=== PATIENT | female | born 1950 | race Hispanic/Latino ===

== ENCOUNTER 2017-03-05 19:43 | Inpatient (IN) | payer OTHER ==
[2017-03-05] MEDS ORDERED: cefTRIAXone (Rocephin) 1 gm Inj IVPB ONE (20:13)
--- NOTE | 2017-03-05 20:17 | ED PDOC ---
HPI: Female Pain Time Seen by Provider: 03/05/17 20:00 Chief Complaint (Nursing): Female Genitourinary Chief Complaint (Provider): back pain History Per: Patient (66 y/o h/o HTN with right sided flank pain associated fever/vomiting. Has had dysuria 1 week prior and self treated with OTC medications. Has been taking tylenol for pain and fever (last dose 2 hours prior). Seen at urgent care center and sent to ED for evaluation of pyelonephritis. No h/o abdominal surgeries. No h/o LA/CAD.) Past Medical History Reviewed: Historical Data, Nursing Documentation, Vital Signs Vital Signs: Last Vital Signs Temp 98.8 F 03/05/17 19:47 Pulse 73 03/05/17 19:47 Resp 14 03/05/17 19:47 BP 164/89 H 03/05/17 19:47 Pulse Ox 99 03/05/17 19:47 - Family History Family History: States: No Known Family Hx - Allergies Allergies/Adverse Reactions: Allergies Allergy/AdvReac Type Severity Reaction Status Date / Time No Known Allergies Allergy Verified 03/05/17 19:46 Review of Systems ROS Statement: Except As Marked, All Systems Reviewed And Found Negative Constitutional: Positive for: Fever Musculoskeletal: Positive for: Back Pain Physical Exam - Reviewed Nursing Documentation Reviewed: Yes Vital Signs Reviewed: Yes - Physical Exam Appears: Positive for: Well, Non-toxic, No Acute Distress Head Exam: Positive for: ATRAUMATIC, NORMAL INSPECTION, NORMOCEPHALIC Skin: Positive for: Normal Color, Warm, DRY Eye Exam: Positive for: EOMI, Normal appearance, PERRL ENT: Positive for: Normal ENT Inspection Neck: Positive for: Normal, Painless ROM Cardiovascular/Chest: Positive for: Regular Rate, Rhythm Respiratory: Positive for: CNT, Normal Breath Sounds Gastrointestinal/Abdominal: Positive for: Normal Exam, Bowel Sounds, Soft Back: Positive for: Normal Inspection, R CVA Tenderness Extremity: Positive for: Normal ROM Neurologic/Psych: Positive for: Alert, Oriented - Laboratory Results Urine dip results: Positive for: Leukocyte Esterase. Negative for: Blood, Nitrate, Ketones, Glucose, Bilirubin, Protein - ECG O2 Sat by Pulse Oximetry: 99 - Progress ED Course And Treament: Rocephin 1 gm iv x 1 dose NS 1 liter wide open Morphine 4 mg iv x 1 dose zofran 4 mg iv x 1 dose Disposition - Clinical Impression Clinical Impression: Pyelonephritis - Patient ED Disposition Is Patient to be Admitted: Transfer of Care - Disposition Disposition: Transfer of Care Disposition Time: 21:12 Condition: STABLE Forms: [facility] (Kosovan) Patient Signed Over To: Ivory Burris Handoff Comments: pending bloodwork/urine/re-eval
[2017-03-05] MEDS ORDERED: Sodium Chloride 0.9% 1,000 ML IV STA (20:19)
[2017-03-05 21:22] LABS: VENOUS BLOOD GAS BASE EXCESS 1.7 mmol/L (0.0-2.0); VENOUS BLOOD GAS PCO2 38 mmHg (40-60); VENOUS BLOOD PH 7.44 (7.32-7.43)
[2017-03-05 21:24] LABS: BASO % 0.2 % (0.0-2.0); EOS % 0.1 % (0.0-4.0); HEMATOCRIT 38.3 % (34.0-47.0); LYMPH # 0.6 K/uL (1.0-4.3); LYMPH % 6.5 % (20.0-40.0); MEAN CELL VOLUME 98.5 fl (81.0-99.0); MEAN CORPUSCULAR HEMOGLOBIN 32.7 pg (27.0-31.0); MEAN CORPUSCULAR HGB CONC 33.2 g/dL (33.0-37.0); MEAN PLATELET VOLUME 9.1 fl (7.2-11.7); MONO # 0.6 K/uL (0.0-0.8); MONO % 5.7 % (0.0-10.0); NEUT # 8.8 K/uL (1.8-7.0); NEUT % 87.5 % (50.0-75.0); PLATELET COUNT 187 K/uL (130-400); RED CELL DISTRIBUTION WIDTH 12.6 % (11.5-14.5)
[2017-03-05 21:30] LABS: ALB/GLOB RATIO 1.2 (1.0-2.1); BILIRUBIN,TOTAL 0.8 mg/dl (0.2-1.3); CALCIUM 8.6 mg/dL (8.4-10.2); POTASSIUM 3.4 MMOL/L (3.6-5.0); TOTAL PROTEIN 6.2 G/DL (6.3-8.2)
[2017-03-05 21:44] LABS: RBC URINE 17 /hpf (0-3); URINE BILIRUBIN NEGATIVE (NEGATIVE); URINE BLOOD MODERATE (NEGATIVE); URINE COLOR AMBER (YELLOW); URINE GLUCOSE (UA) NEG (Normal); URINE KETONE NEGATIVE (NEGATIVE); URINE LEUKOCYTE ESTERASE LARGE Leu/uL (Negative); URINE PROTEIN 100 mg/dL (NEGATIVE); URINE UROBILINOGEN 0.2-1.0 mg/dL (0.2-1.0); WBC CLUMPS FEW /hpf; WBC URINE 265 /hpf (0-5)
[2017-03-05 22:05] LABS: NEUTROPHIL 81 % (42-75); TOTAL CELLS COUNTED 100
--- NOTE | 2017-03-05 23:29 | CT ---
EXAM: CT Abdomen and Pelvis Without Intravenous Contrast CLINICAL HISTORY: 66 years old, female; Pain; Abdominal pain; Flank; Right; Additional info: Right flank pain, hematuria, uti TECHNIQUE: Axial computed tomography images of the abdomen and pelvis without intravenous contrast. All CT scans at this facility use one or more dose reduction techniques, viz.: automated exposure control; ma/kV adjustment per patient size (including targeted exams where dose is matched to indication; i.e. head); or iterative reconstruction technique. Coronal and sagittal reformatted images were created and reviewed. COMPARISON: No relevant prior studies available. FINDINGS: Lower thorax: There is a large hiatal hernia which contains a majority of the stomach. There is minimal bibasilar atelectasis. ABDOMEN: Liver: There are no focal liver lesions present. Gallbladder and bile ducts: The gallbladder is contracted but otherwise normal. No calcified stones. No ductal dilation. Pancreas: Pancreas is atrophic and somewhat fatty replaced. No ductal dilation. Spleen: The spleen is normal. Adrenals: Unremarkable. No mass. Kidneys and ureters: There is some fatty stranding and slight fluid seen in both perinephric regions, left greater than right, and also inferior to the pancreas body and tail. Stranding extends into both paracolic gutter regions. This is nonspecific but could possibly relate to pancreatitis or infectious process of the urinary tract. Please correlate clinically. No convincing evidence for obstructive uropathy. Stomach and bowel: There is no evidence of intestinal obstruction. No mucosal thickening. Appendix: No findings to suggest acute appendicitis. PELVIS: Bladder: Bladder is decompressed. No stones. Reproductive: The uterus is normal. ABDOMEN and PELVIS: Intraperitoneal space: There is no free intraperitoneal air. No significant fluid collection. Bones/joints: There are mild degenerative changes present. There is moderate diffuse osteopenia. There is mild grade 1 anterolisthesis of L4 on L5. No acute fracture. No dislocation. Soft tissues: Unremarkable. Vasculature: The aorta demonstrates mild atherosclerotic calcification. No abdominal aortic aneurysm. Lymph nodes: There is no evidence of lymphadenopathy. IMPRESSION: 1. There is a large hiatal hernia which contains a majority of the stomach. 2. There is some fatty stranding and slight fluid seen in both perinephric regions, left greater than right, and also inferior to the pancreas body and tail. Stranding extends into both paracolic gutter regions. This is nonspecific but could possibly relate to pancreatitis or infectious process of the urinary tract. Please correlate clinically. 3. Additional incidental and/or chronic findings as described.
--- NOTE | 2017-03-05 23:41 | ED PDOC ---
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 All CT scans at this facility use one or more dose reduction techniques, viz.: automated exposure control; ma/kV adjustment per patient size (including targeted exams where dose is matched to indication; i.e. head); or iterative reconstruction technique. Coronal and sagittal reformatted images were created and reviewed. COMPARISON: No relevant prior studies available. FINDINGS: Lower thorax: There is a large hiatal hernia which contains a majority of the stomach. There is minimal bibasilar atelectasis. ABDOMEN: Liver: There are no focal liver lesions present. Gallbladder and bile ducts: The gallbladder is contracted but otherwise normal. No calcified stones. No ductal dilation. Pancreas: Pancreas is atrophic and somewhat fatty replaced. No ductal dilation. Spleen: The spleen is normal. Adrenals: Unremarkable. No mass. Kidneys and ureters: There is some fatty stranding and slight fluid seen in both perinephric regions, left greater than right, and also inferior to the pancreas body and tail. Stranding extends into both paracolic gutter regions. This is nonspecific but could possibly relate to pancreatitis or infectious process of the urinary tract. Please correlate clinically. No convincing evidence for obstructive uropathy. Stomach and bowel: There is no evidence of intestinal obstruction. No mucosal thickening. Appendix: No findings to suggest acute appendicitis. PELVIS: Bladder: Bladder is decompressed. No stones. Reproductive: The uterus is normal ABDOMEN and PELVIS: Intraperitoneal space: There is no free intraperitoneal air. No significant fluid collection. Bones/joints: There are mild degenerative changes present. There is moderate diffuse osteopenia. There is mild grade 1 anterolisthesis of L4 on L5. No acute fracture. No dislocation. Soft tissues: Unremarkable. Vasculature: The aorta demonstrates mild atherosclerotic calcification. No abdominal aortic aneurysm. Lymph nodes: There is no evidence of lymphadenopathy. IMPRESSION: 1. There is a large hiatal hernia which contains a majority of the stomach. 2. There is some fatty stranding and slight fluid seen in both perinephric regions, left greater than right, and also inferior to the pancreas body and tail. Stranding extends into both paracolic gutter regions. This is nonspecific but could possibly relate to pancreatitis or infectious process of the urinary tract. Please correlate clinically. 3. Additional incidental and/or chronic findings as described. On re-eval, patient states she is still feeling weak. Case discussed with Dr. Calix, Hospitalist on-call, for admission for IV antibiotics, IV hydration Repeat vitals show tachycardia, hypotension. Will upgrade to telemetry. IV fluid bolus added. VBG with lactate added. Disposition - Clinical Impression Clinical Impression: Pyelonephritis, Sepsis - POA Present On Arrival: None - Disposition Disposition: Admitted as In-Patient Disposition Time: 01:03 Condition: FAIR
[2017-03-06] MEDS ORDERED: Sodium Chloride 0.9% 1,000 ML IV STA (01:34)
[2017-03-06 01:56] LABS: VENOUS BLOOD GAS BASE EXCESS -0.6 mmol/L (0.0-2.0); VENOUS BLOOD GAS PCO2 35 mmHg (40-60); VENOUS BLOOD PH 7.43 (7.32-7.43)
--- NOTE | 2017-03-06 02:13 | CP.PCM.HP ---
History of Present Illness - History of Present Illness History of Present Illness: PCP: Carrie Garcia complaint: Right back pain/vomiting/ weakness HPI: 66 years old female visiting from [place], has hx of asthma, HTN and was diagnosed 1 week ago with UTI. She was treated and initially felt better but 3 days prior to this admission she began presenting right flank pain radiating to the right groin and the right thigh. This was associated with Urinary frequency , headache, nausea, vomiting, mild diarrhea and generalized weakness. She referred no fever, coughing, chest pain. She was seen at the urgent care center and was sent to the ED for evaluation . Initial BP in ED was 164/89mmHg with a Heart rate of 73. this later changed to a heart rate of 120/min with fall in the blood pressure to 96/46mmHg. PMH: Asthma; HTN PSH: No surgical history SH: No illegal drugs; No smoking; No alcohol use; Live with Family in [place] Family Hx: Unknown family history Allergies: NKDA Present on Admission - Present on Admission Any Indicators Present on Admission: No History of DVT/PE: No History of Uncontrolled Diabetes: No Urinary Catheter: No Decubitus Ulcer Present: No Review of Systems - Constitutional Constitutional: Headache. absent: Anorexia, Chills, Fever - EENT Eyes: Requires Corrective Lenses. absent: Diplopia, Floaters, Sees Flashes Ears: absent: Decreased Hearing, Ear Discharge, Ear Pain, Tinnitus Nose/Mouth/Throat: absent: Epistaxis, Nasal Congestion, Sinus Pain, Sinus Pressure - Cardiovascular Cardiovascular: absent: Chest Pain, Dyspnea, Edema - Respiratory Respiratory: Cough. absent: Dyspnea, Wheezing, Stridor - Gastrointestinal Gastrointestinal: Diarrhea, Nausea, Vomiting. absent: Constipation - Genitourinary Genitourinary: Flank Pain, Urinary Incontinence, Urinary Frequency. absent: Hematuria - Musculoskeletal Musculoskeletal: Muscle Weakness. absent: Arthralgias, Myalgias - Integumentary Integumentary: absent: Pruritus, Rash, Skin Ulcer, Sores, Striae, Swelling - Neurological Neurological: Weakness. absent: Confusion, Dizziness, Focal Weakness - Psychiatric Psychiatric: absent: Anxiety, Depression, Panic Attacks - Endocrine Endocrine: absent: Palpitations, Polydipsia, Polyphagia, Polyuria - Hematologic/Lymphatic Hematologic: absent: Easy Bleeding, Easy Bruising Past Patient History - Past Social History Smoking Status: Never Smoked Chewing Tobacco Use: No Cigar Use: No Alcohol: None Home Situation {Lives}: With Family - CARDIAC Hx Cardiac Disorders: No - PULMONARY Hx Asthma: Yes - HEENT Hx HEENT Problems: No - RENAL Hx Chronic Kidney Disease: No - ENDOCRINE/METABOLIC Hx Endocrine Disorders: No - HEMATOLOGICAL/ONCOLOGICAL Hx Blood Disorders: No - INTEGUMENTARY Hx Dermatological Problems: No - MUSCULOSKELETAL/RHEUMATOLOGICAL Hx Musculoskeletal Disorders: No - GASTROINTESTINAL Hx Bowel Surgery: No - GENITOURINARY/GYNECOLOGICAL Hx Genitourinary Disorders: Yes Hx Urinary Tract Infection: Yes - PSYCHIATRIC Hx Psychophysiologic Disorder: Yes Hx Substance Use: No - SURGICAL HISTORY Hx Surgeries: No - ANESTHESIA Hx Anesthesia: No Meds Allergies/Adverse Reactions: Allergies Allergy/AdvReac Type Severity Reaction Status Date / Time No Known Allergies Allergy Verified 03/05/17 19:46 Physical Exam - Constitutional Appears: No Acute Distress - Head Exam Head Exam: ATRAUMATIC, NORMAL INSPECTION, NORMOCEPHALIC - Eye Exam Eye Exam: EOMI, Normal appearance Pupil Exam: NORMAL ACCOMODATION, PERRL - ENT Exam ENT Exam: Mucous Membranes Dry, Normal Exam, Normal External Ear Exam, Normal Oropharynx - Neck Exam Neck exam: Positive for: Full Rom, Normal Inspection. Negative for: Lymphadenopathy, Tenderness - Respiratory Exam Respiratory Exam: NORMAL BREATHING PATTERN. absent: Rales, Rhonchi, Wheezes - Cardiovascular Exam Cardiovascular Exam: Clicks, REGULAR RHYTHM, RRR, +S1, +S2 - GI/Abdominal Exam Additional comments: Pain to the right lower quadrant.No guarding, nor rebound tenderness. - Rectal Exam Rectal Exam: Deferred - Extremities Exam Extremities exam: Positive for: full ROM, joint swelling, normal inspection. Negative for: calf tenderness - Back Exam Back exam: CVA tenderness (R), NORMAL INSPECTION. absent: CVA tenderness (L) - Neurological Exam Neurological exam: Alert, CN II-XII Intact, Oriented x3, Reflexes Normal - Psychiatric Exam Psychiatric exam: Normal Affect, Normal Mood - Skin Skin Exam: Dry, Intact, Pallor, Warm Results - Vital Signs Recent Vital Signs: Last Vital Signs Temp 98.7 F 03/06/17 01:19 Pulse 120 H 03/06/17 01:19 Resp 14 03/05/17 19:47 BP 95/46 L 03/06/17 01:19 Pulse Ox 99 03/06/17 01:43 - Labs Result Diagrams: 03/05/17 21:09 03/05/17 21:09 Labs: Laboratory Results - last 24 hr 03/06/17 01:53 pO2 41 VBG pH 7.43 VBG pCO2 35 L VBG HCO3 23.9 VBG Total CO2 24.3 VBG O2 Sat (Calc) 83.5 H VBG Base Excess -0.6 L VBG Potassium 3.0 L Sodium 129.0 L Chloride 97.0 L Glucose 118 H Lactate 1.0 FiO2 21.0 Venous Blood Potassium 3.0 L - EKG Data EKG comments: Sinus Tachycardia No sign of ischmia - Imaging and Cardiology CT scan - abdomen Status: Report reviewed by me Additional comment: FINDINGS: Lower thorax: There is a large hiatal hernia which contains a majority of the stomach. There is minimal bibasilar atelectasis. ABDOMEN: Liver: There are no focal liver lesions present. Gallbladder and bile ducts: The gallbladder is contracted but otherwise normal. No calcified stones. No ductal dilation. Pancreas: Pancreas is atrophic and somewhat fatty replaced. No ductal dilation. Spleen: The spleen is normal. Adrenals: Unremarkable. No mass. Kidneys and ureters: There is some fatty stranding and slight fluid seen in both perinephric regions, left greater than right, and also inferior to the pancreas body and tail. Stranding extends into both paracolic gutter regions. This is nonspecific but could possibly relate to pancreatitis or infectious process of the urinary tract. Please correlate clinically. No convincing evidence for obstructive uropathy. Stomach and bowel: There is no evidence of intestinal obstruction. No mucosal thickening. Appendix: No findings to suggest acute appendicitis. PELVIS: Bladder: Bladder is decompressed. No stones. Reproductive: The uterus is normal ABDOMEN and PELVIS: Intraperitoneal space: There is no free intraperitoneal air. No significant fluid collection. Bones/joints: There are mild degenerative changes present. There is moderate diffuse osteopenia. There is mild grade 1 anterolisthesis of L4 on L5. No acute fracture. No dislocation. Soft tissues: Unremarkable. Vasculature: The aorta demonstrates mild atherosclerotic calcification. No abdominal aortic aneurysm. Lymph nodes: There is no evidence of lymphadenopathy. IMPRESSION: 1. There is a large hiatal hernia which contains a majority of the stomach. 2. There is some fatty stranding and slight fluid seen in both perinephric regions, left greater than right, and also inferior to the pancreas body and tail. Stranding extends into both paracolic gutter regions. This is nonspecific but could possibly relate to pancreatitis or infectious process of the urinary tract. Please correlate clinically. 3. Additional incidental and/or chronic findings as described. Chest x-ray Status: Image reviewed by me, Report reviewed by me Additional comment: Atelectasis at the right base. Assessment & Plan - Assessment and Plan (Free Text) Assessment: #. Pyelonephritis #. Acute Renal failure #. Hyponatremia #. Hypokalemia #. funguria #. HTN Plan: 66 years old female visiting from [place], has hx of asthma, HTN and was diagnosed and treated 1 week ago with UTI. 3 days prior to this admission she began presenting right flank pain radiating to the right groin and the right thigh. This was associated with Urinary frequency, headache, nausea, vomiting, mild diarrhea and generalized weakness. Initial BP in ED was 164/89mmHg with a Heart rate of 73. This later changed to a heart rate of 120/min with fall in the blood pressure to 96/46mmHg. #. Pyelonephritis - Consult ID Dr Crouch - follow blood and urine cultures - Rocephin 1gm IVPB daily - IV Fluid NS -Pain management with Tylenol/Toradol #. Acute Renal failure, pre-renal due to the vomiting and Diarrhea - IV Fluids 2 liters in ED and continue at 150mls/hr - Follow renal labs #. Hyponatremia and Hypokalemia because pof poor intake, vomiting and diarrhea - IV fluid NS with KCL at 150/min - Follow electrolytes #. Funguria - 200mg PO daily - ID on board #. HTN - Hold antihypertensive Medications - follow Blood Pressures #. Diarrhea - Follow Stool for C Diff Toxins, and Culture and sensitivity. #. DVT prophylaxis with Lovenox #. Code Status: Full - Date & Time Date: 03/06/17 Time: 02:12
[2017-03-06] MEDS ORDERED: Potassium Chloride 20 mEq ER Tab PO ONE (02:30)
[2017-03-06] MEDS ORDERED: Sodium Chloride 0.9% 1,000 ML IV SCH (02:30)
[2017-03-06 08:03] LABS: BASO % 0.2 % (0.0-2.0); EOS % 0.1 % (0.0-4.0); HEMATOCRIT 33.8 % (34.0-47.0); LYMPH # 0.7 K/uL (1.0-4.3); LYMPH % 7.8 % (20.0-40.0); MEAN CELL VOLUME 98.7 fl (81.0-99.0); MEAN CORPUSCULAR HEMOGLOBIN 33.3 pg (27.0-31.0); MEAN CORPUSCULAR HGB CONC 33.7 g/dL (33.0-37.0); MEAN PLATELET VOLUME 9.4 fl (7.2-11.7); MONO # 0.5 K/uL (0.0-0.8); MONO % 6.1 % (0.0-10.0); NEUT # 7.3 K/uL (1.8-7.0); NEUT % 85.8 % (50.0-75.0); RED CELL DISTRIBUTION WIDTH 12.9 % (11.5-14.5); WHITE BLOOD COUNT 8.5 K/uL (4.8-10.8)
[2017-03-06 08:11] LABS: CALCIUM 7.4 mg/dL (8.4-10.2); POTASSIUM 3.4 MMOL/L (3.6-5.0)
[2017-03-06 08:35] LABS: PARTIAL THROMBOPLASTIN TIME 41.3 Seconds (25.6-37.1)
--- NOTE | 2017-03-06 09:41 | CP.PCM.CON ---
History of Present Illness - History of Present Illness History of Present Illness: Infectious Disease Consult Note- asked to see this patient for UTI . HPI- Patient is a pleasant 66 year old female visiting from [place] with h/o HTN who as admitted with c/o right flank pain and dysurea. Pt. explains initially 3 days prior to admission she felt pain with urination and she went to local pharmacy and got cranberry tabs which helped her symptoms somewhat but then she developed right flank pain and went to urgent care center and she was sent to ED for further evaluation and treatment. Pt. states since admission her dysurea has resolved but she still has slight right flank pain but much less than before. she denies any h/o UTI in the past, denies any h/o renal stones. pt. denies any feve ror chills, denies any nausea. PMH: Asthma; HTN PSH: No surgical history SH: No illegal drugs; No smoking; No alcohol use; Live with Family in [place] Family Hx: Unknown family history Allergy- denies any allergy to any medications Review of Systems - Review of Systems Review of Systems: ROS- denies any fever or chills, denies any BUITRAGO, denies any cough, denies any sob, denies any chest pain, denies any abd. pain but does have right flank and lower back pain , + dysurea but has mostly resolved, denies any diarrhea denies any sick contacts is here visiting her family from [place]. Past Patient History - Past Medical History & Family History Past Medical History?: Yes - Past Social History Smoking Status: Never Smoked Chewing Tobacco Use: No Cigar Use: No Alcohol: None Home Situation {Lives}: With Family - CARDIAC Hx Cardiac Disorders: No Hx Hypertension: Yes - HEENT Hx HEENT Problems: No - RENAL Hx Chronic Kidney Disease: No - ENDOCRINE/METABOLIC Hx Endocrine Disorders: No - HEMATOLOGICAL/ONCOLOGICAL Hx Blood Disorders: No - INTEGUMENTARY Hx Dermatological Problems: No - MUSCULOSKELETAL/RHEUMATOLOGICAL Hx Musculoskeletal Disorders: No - GASTROINTESTINAL Hx Bowel Surgery: No - GENITOURINARY/GYNECOLOGICAL Hx Genitourinary Disorders: Yes Hx Urinary Tract Infection: Yes - PSYCHIATRIC Hx Psychophysiologic Disorder: Yes Hx Substance Use: No - SURGICAL HISTORY Hx Surgeries: No - ANESTHESIA Hx Anesthesia: No Meds Allergies/Adverse Reactions: Allergies Allergy/AdvReac Type Severity Reaction Status Date / Time No Known Allergies Allergy Verified 03/05/17 19:46 - Medications Medications: Current Medications Acetaminophen (Tylenol 325mg Tab) 650 mg PO Q4 PRN PRN Reason: Fever >100.4 F Last Admin: 03/06/17 03:17 Dose: 650 mg Acetaminophen (Tylenol 325mg Tab) 650 mg PO Q4 PRN PRN Reason: Other Enoxaparin Sodium (Lovenox) 30 mg SC DAILY [facility] PRN Reason: Protocol Ceftriaxone Sodium 1 gm/ (Sodium Chloride) 100 mls @ 100 mls/hr IVPB DAILY [facility] Potassium Chloride 10 meq/ (Sodium Chloride) 1,005 mls @ 150 mls/hr IV .Q6H42M [facility] Stop: 03/07/17 02:23 Last Admin: 03/06/17 03:19 Dose: 150 mls/hr Ondansetron HCl (Zofran Inj) 4 mg IVP Q4 PRN PRN Reason: Nausea/Vomiting Tramadol HCl (Ultram) 50 mg PO Q4 PRN PRN Reason: Pain, severe (8-10) Physical Exam - Constitutional Appears: Non-toxic, No Acute Distress - Head Exam Head Exam: ATRAUMATIC - Eye Exam Eye Exam: EOMI, PERRL - ENT Exam ENT Exam: Normal Oropharynx - Respiratory Exam Respiratory Exam: Clear to Auscultation Bilateral, NORMAL BREATHING PATTERN - Cardiovascular Exam Cardiovascular Exam: RRR, +S1, +S2 - GI/Abdominal Exam GI & Abdominal Exam: Normal Bowel Sounds, Soft Additional comments: ND, Nt minimal right CVA tenderness only - Extremities Exam Extremities exam: Positive for: normal inspection - Neurological Exam Neurological exam: Alert, Oriented x3 Results - Vital Signs Recent Vital Signs: Last Vital Signs Temp 98.6 F 03/06/17 08:18 Pulse 106 H 03/06/17 08:18 Resp 18 03/06/17 08:18 BP 104/64 03/06/17 08:18 Pulse Ox 97 03/06/17 08:18 - Labs Result Diagrams: 03/06/17 07:46 03/06/17 07:46 Labs: Laboratory Results - last 24 hr 03/06/17 03/06/17 03/06/17 01:53 07:46 07:46 WBC 8.5 RBC 3.43 L Hgb 11.4 L Hct 33.8 L MCV 98.7 MCH 33.3 H MCHC 33.7 RDW 12.9 Plt Count 182 MPV 9.4 Neut % (Auto) 85.8 H Lymph % (Auto) 7.8 L [place] % (Auto) 6.1 Eos % (Auto) 0.1 Baso % (Auto) 0.2 Neut # 7.3 H Lymph # 0.7 L [place] # 0.5 Eos # 0.0 Baso # 0.0 PT INR APTT pO2 41 VBG pH 7.43 VBG pCO2 35 L VBG HCO3 23.9 VBG Total CO2 24.3 VBG O2 Sat (Calc) 83.5 H VBG Base Excess -0.6 L VBG Potassium 3.0 L Sodium 129.0 L 131 L Chloride 97.0 L 102 Glucose 118 H Lactate 1.0 FiO2 21.0 Potassium 3.4 L Carbon Dioxide 21 L Anion Gap 11 BUN 43 H Creatinine 2.0 H Est GFR ( Amer) 30 Est GFR (Non-Af Amer) 25 Random Glucose 96 Calcium 7.4 L Venous Blood Potassium 3.0 L 03/06/17 07:46 WBC RBC Hgb Hct MCV MCH MCHC RDW Plt Count MPV Neut % (Auto) Lymph % (Auto) [place] % (Auto) Eos % (Auto) Baso % (Auto) Neut # Lymph # [place] # Eos # Baso # PT 12.1 INR 1.2 APTT 41.3 H pO2 VBG pH VBG pCO2 VBG HCO3 VBG Total CO2 VBG O2 Sat (Calc) VBG Base Excess VBG Potassium Sodium Chloride Glucose Lactate FiO2 Potassium Carbon Dioxide Anion Gap BUN Creatinine Est GFR ( Amer) Est GFR (Non-Af Amer) Random Glucose Calcium Venous Blood Potassium Accession No. : [id number] Patient Name / ID : ACE BRISCOE A / [id number] Exam Date : 03/05/2017 22:39:33 ( Approved ) Study Comment : Sex / Age : F / 66Y Creator : TREMAYNE MILLER Dictator : Plate Sensitizer : Medical Doctor Md/Medical Director : TREMAYNE MILLER Approver2 : Report Date : 03/05/2017 23:29:00 My Comment : [facility] Division of Radiology [address] [address] Tel. no. Patient Name: RACHNA BELLO Pt. Address: [address] [place] [address]. Rec #: [id number] [place] [address]: Ivory Burris PA-C Pt Order Location: [facility] : 1950 Female Age: 66 Order #: [id number] Reason for exam: right flank pain, hematuria, uti CT Scan ABD PELVIS W/O PO OR IV CONT Exam Date: 03/05/17 This imaging exam was performed at [facility] EXAM: CT Abdomen and Pelvis Without Intravenous Contrast CLINICAL HISTORY: 66 years old, female; Pain; Abdominal pain; Flank; Right; Additional info: Right flank pain, hematuria, uti TECHNIQUE: Axial computed tomography images of the abdomen and pelvis without intravenous contrast. All CT scans at this facility use one or more dose reduction techniques, viz.: automated exposure control; ma/kV adjustment per patient size (including targeted exams where dose is matched to indication; i.e. head); or iterative reconstruction technique. Coronal and sagittal reformatted images were created and reviewed. COMPARISON: No relevant prior studies available. FINDINGS: Lower thorax: There is a large hiatal hernia which contains a majority of the stomach. There is minimal bibasilar atelectasis. ABDOMEN: Liver: There are no focal liver lesions present. Gallbladder and bile ducts: The gallbladder is contracted but otherwise normal. No calcified stones. No ductal dilation. Pancreas: Pancreas is atrophic and somewhat fatty replaced. No ductal dilation. Spleen: The spleen is normal. Adrenals: Unremarkable. No mass. Kidneys and ureters: There is some fatty stranding and slight fluid seen in both perinephric regions, left greater than right, and also inferior to the pancreas body and tail. Stranding extends into both paracolic gutter regions. This is nonspecific but could possibly relate to pancreatitis or infectious process of the urinary tract. Please correlate clinically. No convincing evidence for obstructive uropathy. Stomach and bowel: There is no evidence of intestinal obstruction. No mucosal thickening. Appendix: No findings to suggest acute appendicitis. PELVIS: Bladder: Bladder is decompressed. No stones. Reproductive: The uterus is normal. ABDOMEN and PELVIS: Intraperitoneal space: There is no free intraperitoneal air. No significant fluid collection. Bones/joints: There are mild degenerative changes present. There is moderate diffuse osteopenia. There is mild grade 1 anterolisthesis of L4 on L5. No acute fracture. No dislocation. Soft tissues: Unremarkable. Vasculature: The aorta demonstrates mild atherosclerotic calcification. No abdominal aortic aneurysm. Lymph nodes: There is no evidence of lymphadenopathy. IMPRESSION: 1. There is a large hiatal hernia which contains a majority of the stomach. 2. There is some fatty stranding and slight fluid seen in both perinephric regions, left greater than right, and also inferior to the pancreas body and tail. Stranding extends into both paracolic gutter regions. This is nonspecific but could possibly relate to pancreatitis or infectious process of the urinary tract. Please correlate clinically. 3. Additional incidental and/or chronic findings as described. Dictated By: Tremayne Miller MD, MD Dictated Date/Time: 03/05/172328 Signed By: Tremayne Miller MD Date Signed: [id number] Transcribed By: HORACE Transcribe Date/Time : 03/05/172328 MIRA/NOEMIDAccession No. : [id number] Patient Name / ID : ACE Martinez / [id number] Exam Date : 03/06/2017 00:55:52 ( Approved ) Study Comment : Sex / Age : F / 66Y Creator : Anthony Mazariegos MD Dictator : Anthony Mazariegos MD Plate Sensitizer : Medical Doctor Md/Medical Director : Anthony Mazariegos MD Approver2 : Report Date : 03/06/2017 12:43:13 My Comment : HISTORY: admit COMPARISON: No prior. FINDINGS: LUNGS: Mild bibasilar atelectasis right greater than left. PLEURA: No significant pleural effusion identified, no pneumothorax apparent. CARDIOVASCULAR: Heart size within range of normal. OSSEOUS STRUCTURES: Mild multilevel degenerative spondylosis of the thoracic spine VISUALIZED UPPER ABDOMEN: Moderately large hiatal hernia. OTHER FINDINGS: None. IMPRESSION: Mild bibasilar atelectasis right greater than left. Moderate size hiatal hernia. Assessment & Plan (1) Pyelonephritis Status: Acute (2) UTI (urinary tract infection) Status: Acute - Assessment and Plan (Free Text) Assessment: A/P- 66 year old female admitted with UTI and ? pyelonephritis. not septic . has fevers but normal wbc count slightly elevated PMN. CT report noted with perinephric stranding as per report. UA- Pos Urine cx- pending plan- check blood cx x 2 await urine cx result. In light of the ? pyelonephritis advise to broaden the antibiotic coverage pending ID and sensitivity of the urine cx. Hence advise to d/c ceftriaxone and start IV zosyn pending urine cx result. monitor temps as well. all above d/w patient and her who is at her bedside and she verbalizes full understanding of all above. Thank you for allowing me to take part in the care of this patient. will f/u
[2017-03-06] MEDS: Enoxaparin 30 mg Syringe SC SCH (10:00)
--- NOTE | 2017-03-06 10:38 | CARD ---
APPROVED REPORT EKG Measurement Heart [id number] <Conclusion> Sinus tachycardia Otherwise normal ECG
--- NOTE | 2017-03-06 12:44 | RAD ---
HISTORY: admit COMPARISON: No prior. FINDINGS: LUNGS: Mild bibasilar atelectasis right greater than left. PLEURA: No significant pleural effusion identified, no pneumothorax apparent. CARDIOVASCULAR: Heart size within range of normal. OSSEOUS STRUCTURES: Mild multilevel degenerative spondylosis of the thoracic spine VISUALIZED UPPER ABDOMEN: Moderately large hiatal hernia. OTHER FINDINGS: None. IMPRESSION: Mild bibasilar atelectasis right greater than left. Moderate size hiatal hernia.
[2017-03-06] MEDS: Piperacillin/Tazobact 3.375 GM in Sodium Chloride 0.9% 100 ML IVPB SCH (18:58)
[2017-03-06] MEDS: Pantoprazole 40 mg EC Tab PO SCH (19:19)
[2017-03-07] MEDS: Piperacillin/Tazobact 3.375 GM in Sodium Chloride 0.9% 100 ML IVPB SCH ×3 (00:30→17:03)
[2017-03-07] MEDS ORDERED: Potassium Chloride 20 mEq ER Tab PO ONE (07:15)
[2017-03-07 08:11] LABS: CALCIUM 7.7 mg/dL (8.4-10.2); POTASSIUM 3.4 MMOL/L (3.6-5.0)
[2017-03-07 08:21] LABS: HEMATOCRIT 31.9 % (34.0-47.0); MEAN CELL VOLUME 98.1 fl (81.0-99.0); MEAN CORPUSCULAR HEMOGLOBIN 32.9 pg (27.0-31.0); MEAN CORPUSCULAR HGB CONC 33.5 g/dL (33.0-37.0); RED CELL DISTRIBUTION WIDTH 13.3 % (11.5-14.5); WHITE BLOOD COUNT 5.5 K/uL (4.8-10.8)
--- NOTE | 2017-03-07 09:27 | CP.PCM.PN ---
Subjective - Date & Time of Evaluation Date of Evaluation: 03/07/17 Time of Evaluation: 09:24 - Subjective Subjective: pt feeling mildly improved no pain HD stable Objective - Vital Signs/Intake and Output Vital Signs (last 24 hours): Temp Pulse Resp BP Pulse Ox 97.4 F L 96 H 18 111/68 95 03/07/17 08:00 03/07/17 08:00 03/07/17 08:00 03/07/17 08:00 03/07/17 08:00 Intake and Output: 03/07/17 03/07/17 06:59 18:59 Intake Total 1720 Output Total 1500 Balance 220 - Medications Medications: Current Medications Acetaminophen (Tylenol 325mg Tab) 650 mg PO Q4 PRN PRN Reason: Fever >100.4 F Last Admin: 03/06/17 17:14 Dose: 650 mg Acetaminophen (Tylenol 325mg Tab) 650 mg PO Q4 PRN PRN Reason: Other Last Admin: 03/07/17 00:33 Dose: 650 mg Enoxaparin Sodium (Lovenox) 30 mg SC DAILY [facility] PRN Reason: Protocol Last Admin: 03/06/17 10:00 Dose: 30 mg Piperacillin Sod/Tazobactam (Sod 3.375 gm/ Sodium Chloride) 100 mls @ 100 mls/ hr IVPB Q8 [facility] Last Admin: 03/07/17 00:30 Dose: 100 mls/hr Ondansetron HCl (Zofran Inj) 4 mg IVP Q4 PRN PRN Reason: Nausea/Vomiting Pantoprazole Sodium (Protonix Ec Tab) 40 mg PO DAILY [facility] Last Admin: 03/06/17 19:19 Dose: 40 mg Tramadol HCl (Ultram) 50 mg PO Q4 PRN PRN Reason: Pain, severe (8-10) - Labs Labs: 03/07/17 06:00 03/07/17 06:00 PT 12.1 Seconds (9.8-13.1) 03/06/17 07:46 INR 1.2 (0.9-1.2) 03/06/17 07:46 APTT 41.3 Seconds (25.6-37.1) H 03/06/17 07:46 - Constitutional Appears: Non-toxic, No Acute Distress - Head Exam Head Exam: ATRAUMATIC, NORMOCEPHALIC - Eye Exam Eye Exam: EOMI, Normal appearance, PERRL - ENT Exam ENT Exam: Mucous Membranes Moist, Normal Oropharynx - Respiratory Exam Respiratory Exam: Clear to Ausculation Bilateral, NORMAL BREATHING PATTERN - Cardiovascular Exam Cardiovascular Exam: RRR, +S1, +S2 - GI/Abdominal Exam GI & Abdominal Exam: Soft, Normal Bowel Sounds. absent: Tenderness, Organomegaly - Extremities Exam Extremities Exam: Full ROM, Normal Capillary Refill - Back Exam Back Exam: CVA tenderness (L), CVA tenderness (R) - Neurological Exam Neurological Exam: Alert, Awake - Psychiatric Exam Psychiatric exam: Normal Affect, Normal Mood - Skin Skin Exam: Dry, Normal Color, Warm Assessment and Plan - Assessment and Plan (Free Text) Plan: 66 years old female visiting from [place], has hx of asthma, HTN and was diagnosed and treated 1 week ago with UTI. 3 days prior to this admission she began presenting right flank pain radiating to the right groin and the right thigh. This was associated with Urinary frequency, headache, nausea, vomiting, mild diarrhea and generalized weakness. Initial BP in ED was 164/89mmHg with a Heart rate of 73. This later changed to a heart rate of 120/min with fall in the blood pressure to 96/46mmHg. Pyelonephritis - Consult ID Dr Crouch - follow blood and urine cultures - Rocephin 1gm IVPB daily changed to VANC AND ZOSYN +BLOOD CX pos for GM NEG R - IV Fluid NS -Pain management with Tylenol/Toradol Acute Kidney Injury, likely pre-renal due to the vomiting and Diarrhea - IV Fluids 2 liters in ED and continue at 125mls/hr - Follow renal labs Hyponatremia and Hypokalemia because of poor intake, vomiting and diarrhea - IV fluid NS with KCL at 150/min - Follow electrolytes Funguria - 200mg PO daily - ID on board HTN - Hold antihypertensive Medications - follow Blood Pressures Diarrhea - Follow Stool for C Diff Toxins, and Culture and sensitivity. DVT prophylaxis with Lovenox Code Status: Full
[2017-03-07] MEDS: Enoxaparin 30 mg Syringe SC SCH (09:57)
[2017-03-07] MEDS: Pantoprazole 40 mg EC Tab PO SCH (09:57)
--- NOTE | 2017-03-07 11:58 | CP.PCM.PN ---
Subjective - Date & Time of Evaluation Date of Evaluation: 03/07/17 Time of Evaluation: 11:58 - Subjective Subjective: ID Note- pt. seen and examined today with her at her bedside. pt. denies any fever or chills and denies any dysurea or abd or flank pain but states feels weak and does not have appetite. Objective - Vital Signs/Intake and Output Vital Signs (last 24 hours): Temp Pulse Resp BP Pulse Ox 97.4 F L 104 H 18 111/68 98 03/07/17 09:00 03/07/17 09:00 03/07/17 09:00 03/07/17 09:00 03/07/17 09:00 Intake and Output: 03/07/17 03/07/17 06:59 18:59 Intake Total 1720 Output Total 1500 Balance 220 - Medications Medications: Current Medications Acetaminophen (Tylenol 325mg Tab) 650 mg PO Q4 PRN PRN Reason: Fever >100.4 F Last Admin: 03/06/17 17:14 Dose: 650 mg Acetaminophen (Tylenol 325mg Tab) 650 mg PO Q4 PRN PRN Reason: Other Last Admin: 03/07/17 00:33 Dose: 650 mg Enoxaparin Sodium (Lovenox) 30 mg SC DAILY [facility] PRN Reason: Protocol Last Admin: 03/07/17 09:57 Dose: 30 mg Piperacillin Sod/Tazobactam (Sod 3.375 gm/ Sodium Chloride) 100 mls @ 100 mls/ hr IVPB Q8 [facility] Last Admin: 03/07/17 09:57 Dose: 100 mls/hr Sodium Chloride (Sodium Chloride 0.9%) 1,000 mls @ 125 mls/hr IV .Q8H [facility] Stop: 03/08/17 09:25 Ondansetron HCl (Zofran Inj) 4 mg IVP Q4 PRN PRN Reason: Nausea/Vomiting Pantoprazole Sodium (Protonix Ec Tab) 40 mg PO DAILY [facility] Last Admin: 03/07/17 09:57 Dose: 40 mg Tramadol HCl (Ultram) 50 mg PO Q4 PRN PRN Reason: Pain, severe (8-10) - Labs Labs: - Constitutional Appears: No Acute Distress - Head Exam Head Exam: ATRAUMATIC - Eye Exam Eye Exam: EOMI, PERRL - ENT Exam ENT Exam: Normal Oropharynx - Neck Exam Neck Exam: Full ROM - Respiratory Exam Respiratory Exam: Clear to Ausculation Bilateral, NORMAL BREATHING PATTERN - Cardiovascular Exam Cardiovascular Exam: RRR, +S1, +S2 - GI/Abdominal Exam GI & Abdominal Exam: Soft, Normal Bowel Sounds Additional comments: NT, Nd - Extremities Exam Extremities Exam: Normal Inspection - Neurological Exam Neurological Exam: Alert, Awake, Oriented x3 - Additional Findings Additional findings: Laboratory Results - last 72 hr 03/05/17 03/05/17 03/05/17 21:00 21:09 21:09 WBC 10.0 RBC 3.89 Hgb 12.7 Hct 38.3 MCV 98.5 MCH 32.7 H MCHC 33.2 RDW 12.6 Plt Count 187 MPV 9.1 Neut % (Auto) 87.5 H Lymph % (Auto) 6.5 L [place] % (Auto) 5.7 Eos % (Auto) 0.1 Baso % (Auto) 0.2 Neut # 8.8 H Lymph # 0.6 L [place] # 0.6 Eos # 0.0 Baso # 0.0 Neutrophils % (Manual) 81 H Band Neutrophils % 4 H Lymphocytes % (Manual) 9 L Monocytes % (Manual) 6 Toxic Granulation Present Platelet Estimate Normal Anisocytosis (manual) Slight Macrocytosis (manual) Slight PT INR APTT pO2 VBG pH VBG pCO2 VBG HCO3 VBG Total CO2 VBG O2 Sat (Calc) VBG Base Excess VBG Potassium Glucose Lactate FiO2 Sodium 129 L Potassium 3.4 L Chloride 93 L Carbon Dioxide 24 Anion Gap 15 BUN 43 H Creatinine 2.0 H Est GFR ( Amer) 30 Est GFR (Non-Af Amer) 25 Random Glucose 124 H Calcium 8.6 Magnesium Total Bilirubin 0.8 AST 41 H ALT 49 Alkaline Phosphatase 70 Total Protein 6.2 L Albumin 3.4 L Globulin 2.8 Albumin/Globulin Ratio 1.2 Lipase Venous Blood Potassium Urine Color Viviane Urine Clarity Turbid Urine pH 5.0 Ur Specific [place] 1.018 Urine Protein 100 Urine Glucose (UA) Neg Urine Ketones Negative Urine Blood Moderate Urine Nitrate Negative Urine Bilirubin Negative Urine Urobilinogen 0.2-1.0 Ur Leukocyte Esterase Large Urine RBC (Auto) 17 H Urine WBC Clumps (Auto) Few H Urine Microscopic WBC 265 H Ur Squamous Epith Cells 2 Urine Yeast (Budding) Few H 03/05/17 03/05/1717 21:19 23:42 01:53 WBC RBC Hgb Hct MCV MCH MCHC RDW Plt Count MPV Neut % (Auto) Lymph % (Auto) [place] % (Auto) Eos % (Auto) Baso % (Auto) Neut # Lymph # [place] # Eos # Baso # Neutrophils % (Manual) Band Neutrophils % Lymphocytes % (Manual) Monocytes % (Manual) Toxic Granulation Platelet Estimate Anisocytosis (manual) Macrocytosis (manual) PT INR APTT pO2 20 L 41 VBG pH 7.44 H 7.43 VBG pCO2 38 L 35 L VBG HCO3 24.5 23.9 VBG Total CO2 27.0 24.3 VBG O2 Sat (Calc) 40.0 83.5 H VBG Base Excess 1.7 -0.6 L VBG Potassium 3.3 L 3.0 L Glucose 126 H 118 H Lactate 1.7 1.0 FiO2 21.0 21.0 Sodium 127.0 L 129.0 L Potassium Chloride 94.0 L 97.0 L Carbon Dioxide Anion Gap BUN Creatinine Est GFR ( Amer) Est GFR (Non-Af Amer) Random Glucose Calcium Magnesium Total Bilirubin AST ALT Alkaline Phosphatase Total Protein Albumin Globulin Albumin/Globulin Ratio Lipase 11 L Venous Blood Potassium 3.3 L 3.0 L Urine Color Urine Clarity Urine pH Ur Specific [place] Urine Protein Urine Glucose (UA) Urine Ketones Urine Blood Urine Nitrate Urine Bilirubin Urine Urobilinogen Ur Leukocyte Esterase Urine RBC (Auto) Urine WBC Clumps (Auto) Urine Microscopic WBC Ur Squamous Epith Cells Urine Yeast (Budding) 03/06/17 03/06/17 03/06/17 07:46 07:46 07:46 WBC 8.5 RBC 3.43 L Hgb 11.4 L Hct 33.8 L MCV 98.7 MCH 33.3 H MCHC 33.7 RDW 12.9 Plt Count 182 MPV 9.4 Neut % (Auto) 85.8 H Lymph % (Auto) 7.8 L [place] % (Auto) 6.1 Eos % (Auto) 0.1 Baso % (Auto) 0.2 Neut # 7.3 H Lymph # 0.7 L [place] # 0.5 Eos # 0.0 Baso # 0.0 Neutrophils % (Manual) Band Neutrophils % Lymphocytes % (Manual) Monocytes % (Manual) Toxic Granulation Platelet Estimate Anisocytosis (manual) Macrocytosis (manual) PT 12.1 INR 1.2 APTT 41.3 H pO2 VBG pH VBG pCO2 VBG HCO3 VBG Total CO2 VBG O2 Sat (Calc) VBG Base Excess VBG Potassium Glucose Lactate FiO2 Sodium 131 L Potassium 3.4 L Chloride 102 Carbon Dioxide 21 L Anion Gap 11 BUN 43 H Creatinine 2.0 H Est GFR ( Amer) 30 Est GFR (Non-Af Amer) 25 Random Glucose 96 Calcium 7.4 L Magnesium Total Bilirubin AST ALT Alkaline Phosphatase Total Protein Albumin Globulin Albumin/Globulin Ratio Lipase Venous Blood Potassium Urine Color Urine Clarity Urine pH Ur Specific [place] Urine Protein Urine Glucose (UA) Urine Ketones Urine Blood Urine Nitrate Urine Bilirubin Urine Urobilinogen Ur Leukocyte Esterase Urine RBC (Auto) Urine WBC Clumps (Auto) Urine Microscopic WBC Ur Squamous Epith Cells Urine Yeast (Budding) 03/07/17 03/07/17 03/07/17 06:00 06:00 07:00 WBC 5.5 RBC 3.25 L Hgb 10.7 L Hct 31.9 L MCV 98.1 MCH 32.9 H MCHC 33.5 RDW 13.3 Plt Count 162 MPV Neut % (Auto) Lymph % (Auto) [place] % (Auto) Eos % (Auto) Baso % (Auto) Neut # Lymph # [place] # Eos # Baso # Neutrophils % (Manual) Band Neutrophils % Lymphocytes % (Manual) Monocytes % (Manual) Toxic Granulation Platelet Estimate Anisocytosis (manual) Macrocytosis (manual) PT INR APTT pO2 VBG pH VBG pCO2 VBG HCO3 VBG Total CO2 VBG O2 Sat (Calc) VBG Base Excess VBG Potassium Glucose Lactate FiO2 Sodium 135 Potassium 3.4 L Chloride 107 Carbon Dioxide 20 L Anion Gap 11 BUN 39 H Creatinine 1.8 H Est GFR ( Amer) 34 Est GFR (Non-Af Amer) 28 Random Glucose 100 Calcium 7.7 L Magnesium 2.2 Total Bilirubin AST ALT Alkaline Phosphatase Total Protein Albumin Globulin Albumin/Globulin Ratio Lipase Venous Blood Potassium Urine Color Urine Clarity Urine pH Ur Specific [place] Urine Protein Urine Glucose (UA) Urine Ketones Urine Blood Urine Nitrate Urine Bilirubin Urine Urobilinogen Ur Leukocyte Esterase Urine RBC (Auto) Urine WBC Clumps (Auto) Urine Microscopic WBC Ur Squamous Epith Cells Urine Yeast (Budding) Microbiology 03/05/17 21:00 Urine Urine Culture - Preliminary Gram Negative Judd 03/05/17 21:09 Blood Blood Culture - Final Gram Negative Judd 03/05/17 21:09 Blood Gram Stain - Final 03/05/17 21:45 Blood Blood Culture - Preliminary Gram Negative Judd 03/05/17 21:45 Blood Gram Stain - Final Assessment and Plan (1) Pyelonephritis Status: Acute (2) UTI (urinary tract infection) Status: Acute - Assessment and Plan (Free Text) Assessment: A/P- 66 year old female admitted with UTI and ? pyelonephritis. afebrile today normal wbc blood cx x 2 from 03/05/2017 reported today as GNR urine cx from 03/05/2017- GNR CT report noted with perinephric stranding as per report. UA- Pos plan- advise to continue with IV zosyn pending exact ID and sensitivity of the GNR in both urine and blood cx. check echo r/o any vegetations. had a lengthy conversation with both the patient and her that since she has bactermia it's imperative to treat with appropritae IV antibiotics for at least 14 days, pt. states she must go back to [place] next week and f/u with her doctor in [place] for the remainder of the IV abx there. advised that at this time it's too soon to make a definitive decision sicne the GNR still not ID and no sensitivity back yet and also we must check for repeat blood cx to make sure the bacteremia is resolving and I would advise for them to postpone their trip back a week so that she can complete the full course of the antibiotics. patient and her verbalize full understanding of al above.
[2017-03-07] MEDS: Sodium Chloride 0.9% 1,000 ML IV SCH ×2 (13:07→19:05)
[2017-03-07] MEDS ORDERED: Pantoprazole 40 mg EC Tab PO SCH (17:48)
[2017-03-07] MEDS ORDERED: Levalbuterol 0.63 MG/3 ML Inhal Soln UD IH ONE (18:06)
[2017-03-07 19:35] LABS: RBC URINE 26 /hpf (0-3); URINE BILIRUBIN NEGATIVE (NEGATIVE); URINE BLOOD MODERATE (NEGATIVE); URINE COLOR YELLOW (YELLOW); URINE GLUCOSE (UA) NEG (Normal); URINE KETONE NEGATIVE (NEGATIVE); URINE LEUKOCYTE ESTERASE NEG Leu/uL (Negative); URINE PROTEIN 30 mg/dL (NEGATIVE); URINE UROBILINOGEN 0.2-1.0 mg/dL (0.2-1.0); WBC URINE 6 /hpf (0-5)
[2017-03-07] MEDS: Fluticasone-Salmeterol 500-50mcg Diskus IH SCH (20:02)
[2017-03-07] MEDS ORDERED: Levalbuterol 0.63 MG/3 ML Inhal Soln UD INH PRN (20:39)
[2017-03-08] MEDS: Piperacillin/Tazobact 3.375 GM in Sodium Chloride 0.9% 100 ML IVPB SCH ×2 (00:40→09:11)
[2017-03-08] MEDS: Sodium Chloride 0.9% 1,000 ML IV SCH ×3 (02:19→20:50)
[2017-03-08] MEDS: Fluticasone-Salmeterol 500-50mcg Diskus IH SCH ×2 (09:11→20:49)
[2017-03-08] MEDS: Enoxaparin 30 mg Syringe SC SCH (09:11)
[2017-03-08] MEDS: Pantoprazole 40 mg EC Tab PO SCH (09:11)
[2017-03-08 12:24] LABS: BASO % 0.8 % (0.0-2.0); EOS % 0.5 % (0.0-4.0); LYMPH # 0.7 K/uL (1.0-4.3); LYMPH % 11.7 % (20.0-40.0); MEAN CELL VOLUME 97.9 fl (81.0-99.0); MEAN CORPUSCULAR HEMOGLOBIN 32.7 pg (27.0-31.0); MEAN CORPUSCULAR HGB CONC 33.4 g/dL (33.0-37.0); MEAN PLATELET VOLUME 9.4 fl (7.2-11.7); MONO # 0.5 K/uL (0.0-0.8); MONO % 9.1 % (0.0-10.0); NEUT # 4.6 K/uL (1.8-7.0); NEUT % 77.9 % (50.0-75.0); RED CELL DISTRIBUTION WIDTH 13.2 % (11.5-14.5); WHITE BLOOD COUNT 5.9 K/uL (4.8-10.8)
--- NOTE | 2017-03-08 12:24 | CP.PCM.PN ---
Subjective - Date & Time of Evaluation Date of Evaluation: 03/08/17 Time of Evaluation: 12:12 - Subjective Subjective: pt mildly improved this morning afebrile no WBC HD stable mild tachy but stable NAD Objective - Vital Signs/Intake and Output Vital Signs (last 24 hours): Temp Pulse Resp BP Pulse Ox 97.9 F 110 H 18 113/70 96 03/08/17 12:00 03/08/17 12:00 03/08/17 12:00 03/08/17 12:00 03/08/17 12:00 Intake and Output: 03/08/17 03/08/17 06:59 18:59 Intake Total 1575 Balance 1575 - Medications Medications: Current Medications Acetaminophen (Tylenol 325mg Tab) 650 mg PO Q4 PRN PRN Reason: Fever >100.4 F Last Admin: 03/06/17 17:14 Dose: 650 mg Acetaminophen (Tylenol 325mg Tab) 650 mg PO Q4 PRN PRN Reason: Other Last Admin: 03/07/17 19:54 Dose: 650 mg Diphenhydramine HCl (Benadryl) 25 mg PO HS PRN PRN Reason: Insomnia Last Admin: 03/07/17 20:59 Dose: 25 mg Enoxaparin Sodium (Lovenox) 30 mg SC DAILY GAUDENCIO PRN Reason: Protocol Last Admin: 03/08/17 09:11 Dose: 30 mg Piperacillin Sod/Tazobactam (Sod 3.375 gm/ Sodium Chloride) 100 mls @ 100 mls/ hr IVPB Q8 GAUDENCIO Last Admin: 03/08/17 09:11 Dose: 100 mls/hr Levalbuterol HCl (Xopenex) 0.63 mg INH RQ8 PRN PRN Reason: Shortness of Breath Ondansetron HCl (Zofran Inj) 4 mg IVP Q4 PRN PRN Reason: Nausea/Vomiting Pantoprazole Sodium (Protonix Ec Tab) 40 mg PO DAILY GAUDENCIO Last Admin: 03/08/17 09:11 Dose: 40 mg Fluticasone/Salmeterol (Advair Diskus 500/50) 1 puff IH Q12 GAUDENCIO Last Admin: 03/08/17 09:11 Dose: 1 puff Tramadol HCl (Ultram) 50 mg PO Q4 PRN PRN Reason: Pain, severe (8-10) - Labs Labs: 03/07/17 06:00 03/07/17 06:00 PT 12.1 Seconds (9.8-13.1) 03/06/17 07:46 INR 1.2 (0.9-1.2) 03/06/17 07:46 APTT 41.3 Seconds (25.6-37.1) H 03/06/17 07:46 Assessment and Plan - Assessment and Plan (Free Text) Plan: 66 years old female visiting from [place], has hx of asthma, HTN and was diagnosed and treated 1 week ago with UTI. 3 days prior to this admission she began presenting right flank pain radiating to the right groin and the right thigh. This was associated with Urinary frequency, headache, nausea, vomiting, mild diarrhea and generalized weakness. Initial BP in ED was 164/89mmHg with a Heart rate of 73. This later changed to a heart rate of 120/min with fall in the blood pressure to 96/46mmHg. 03/08/17 pt afebrile, HD stable, mild tachy. Clinically improved mildly. Cont Zosyn. Pyelonephritis Sepsis - Consult ID Dr Crouch - Rocephin 1gm IVPB daily changed to ZOSYN 03/07/17 +BLOOD CX pos for ECOLI, sensitive to Zosyn. +URINE CX pos for ECOLI, sensitive to Zosyn. - IV Fluid NS -Pain management with Tylenol/Toradol -Per ID ECHO to rule out vegetations given bacteremia, and repeat blood cultures for neg x2. Acute Kidney Injury, likely pre-renal due to prior vomiting and diarrhea - IV Fluids 2 liters in ED and continue at 125mls/hr - Follow renal labs, mildly improving Hyponatremia and Hypokalemia because of poor intake, vomiting and diarrhea - IV fluid NS at 125cc - Follow electrolytes - Given Ensure for poor PO intake HTN - Hold antihypertensive Medications - follow Blood Pressures Diarrhea - Follow Stool for C Diff Toxins, and Culture and sensitivity. Asthma Hx - cont pt's Advair - PRN bronchodilators DVT prophylaxis with Lovenox Code Status: Full
[2017-03-08 12:29] LABS: POTASSIUM 3.6 MMOL/L (3.6-5.0)
--- NOTE | 2017-03-08 12:33 | CP.PCM.PN ---
Subjective - Date & Time of Evaluation Date of Evaluation: 03/08/17 Time of Evaluation: 13:20 - Subjective Subjective: ID note- pt. seen and examined today with her at her bedside. Pt. denies any fever or chills and states feels slightly better today and she was able to eat slightly more today. denies any dysure and denies any nausea and denies any abd. pain. Objective - Vital Signs/Intake and Output Vital Signs (last 24 hours): Temp Pulse Resp BP Pulse Ox 97.9 F 110 H 18 113/70 96 03/08/17 12:00 03/08/17 12:00 03/08/17 12:00 03/08/17 12:00 03/08/17 12:00 Intake and Output: 03/08/17 03/08/17 06:59 18:59 Intake Total 1575 Balance 1575 - Medications Medications: Current Medications Acetaminophen (Tylenol 325mg Tab) 650 mg PO Q4 PRN PRN Reason: Fever >100.4 F Last Admin: 03/06/17 17:14 Dose: 650 mg Acetaminophen (Tylenol 325mg Tab) 650 mg PO Q4 PRN PRN Reason: Other Last Admin: 03/07/17 19:54 Dose: 650 mg Diphenhydramine HCl (Benadryl) 25 mg PO HS PRN PRN Reason: Insomnia Last Admin: 03/07/17 20:59 Dose: 25 mg Enoxaparin Sodium (Lovenox) 30 mg SC DAILY GAUDENCIO PRN Reason: Protocol Last Admin: 03/08/17 09:11 Dose: 30 mg Piperacillin Sod/Tazobactam (Sod 3.375 gm/ Sodium Chloride) 100 mls @ 100 mls/ hr IVPB Q8 GAUDENCIO Last Admin: 03/08/17 09:11 Dose: 100 mls/hr Sodium Chloride (Sodium Chloride 0.9%) 1,000 mls @ 125 mls/hr IV .Q8H [facility] Stop: 03/09/17 12:19 Levalbuterol HCl (Xopenex) 0.63 mg INH RQ8 PRN PRN Reason: Shortness of Breath Ondansetron HCl (Zofran Inj) 4 mg IVP Q4 PRN PRN Reason: Nausea/Vomiting Pantoprazole Sodium (Protonix Ec Tab) 40 mg PO DAILY [facility] Last Admin: 03/08/17 09:11 Dose: 40 mg Fluticasone/Salmeterol (Advair Diskus 500/50) 1 puff IH Q12 GAUDENCIO Last Admin: 03/08/17 09:11 Dose: 1 puff Tramadol HCl (Ultram) 50 mg PO Q4 PRN PRN Reason: Pain, severe (8-10) - Labs Labs: - Constitutional Appears: No Acute Distress - Head Exam Head Exam: ATRAUMATIC - Eye Exam Eye Exam: EOMI, PERRL - ENT Exam ENT Exam: Normal Oropharynx - Neck Exam Neck Exam: Full ROM - Respiratory Exam Respiratory Exam: Clear to Ausculation Bilateral, NORMAL BREATHING PATTERN - Cardiovascular Exam Cardiovascular Exam: RRR, +S1, +S2 - GI/Abdominal Exam GI & Abdominal Exam: Soft, Normal Bowel Sounds Additional comments: NT, ND - Extremities Exam Extremities Exam: Normal Inspection - Neurological Exam Neurological Exam: Alert, Awake, Oriented x3 - Additional Findings Additional findings: Laboratory Results - last 72 hr 03/05/17 03/05/17 03/05/17 21:00 21:09 21:09 WBC 10.0 RBC 3.89 Hgb 12.7 Hct 38.3 MCV 98.5 MCH 32.7 H MCHC 33.2 RDW 12.6 Plt Count 187 MPV 9.1 Neut % (Auto) 87.5 H Lymph % (Auto) 6.5 L [place] % (Auto) 5.7 Eos % (Auto) 0.1 Baso % (Auto) 0.2 Neut # 8.8 H Lymph # 0.6 L [place] # 0.6 Eos # 0.0 Baso # 0.0 Neutrophils % (Manual) 81 H Band Neutrophils % 4 H Lymphocytes % (Manual) 9 L Monocytes % (Manual) 6 Toxic Granulation Present Platelet Estimate Normal Anisocytosis (manual) Slight Macrocytosis (manual) Slight PT INR APTT pO2 VBG pH VBG pCO2 VBG HCO3 VBG Total CO2 VBG O2 Sat (Calc) VBG Base Excess VBG Potassium Glucose Lactate FiO2 Sodium 129 L Potassium 3.4 L Chloride 93 L Carbon Dioxide 24 Anion Gap 15 BUN 43 H Creatinine 2.0 H Est GFR ( Amer) 30 Est GFR (Non-Af Amer) 25 Random Glucose 124 H Calcium 8.6 Magnesium Total Bilirubin 0.8 AST 41 H ALT 49 Alkaline Phosphatase 70 Total Protein 6.2 L Albumin 3.4 L Globulin 2.8 Albumin/Globulin Ratio 1.2 Lipase Venous Blood Potassium Urine Color Viviane Urine Clarity Turbid Urine pH 5.0 Ur Specific [place] 1.018 Urine Protein 100 Urine Glucose (UA) Neg Urine Ketones Negative Urine Blood Moderate Urine Nitrate Negative Urine Bilirubin Negative Urine Urobilinogen 0.2-1.0 Ur Leukocyte Esterase Large Urine RBC (Auto) 17 H Urine WBC Clumps (Auto) Few H Urine Microscopic WBC 265 H Ur Squamous Epith Cells 2 Urine Yeast (Budding) Few H 03/05/17 03/05/17 03/06/17 21:19 23:42 01:53 WBC RBC Hgb Hct MCV MCH MCHC RDW Plt Count MPV Neut % (Auto) Lymph % (Auto) [place] % (Auto) Eos % (Auto) Baso % (Auto) Neut # Lymph # [place] # Eos # Baso # Neutrophils % (Manual) Band Neutrophils % Lymphocytes % (Manual) Monocytes % (Manual) Toxic Granulation Platelet Estimate Anisocytosis (manual) Macrocytosis (manual) PT INR APTT pO2 20 L 41 VBG pH 7.44 H 7.43 VBG pCO2 38 L 35 L VBG HCO3 24.5 23.9 VBG Total CO2 27.0 24.3 VBG O2 Sat (Calc) 40.0 83.5 H VBG Base Excess 1.7 -0.6 L VBG Potassium 3.3 L 3.0 L Glucose 126 H 118 H Lactate 1.7 1.0 FiO2 21.0 21.0 Sodium 127.0 L 129.0 L Potassium Chloride 94.0 L 97.0 L Carbon Dioxide Anion Gap BUN Creatinine Est GFR ( Amer) Est GFR (Non-Af Amer) Random Glucose Calcium Magnesium Total Bilirubin AST ALT Alkaline Phosphatase Total Protein Albumin Globulin Albumin/Globulin Ratio Lipase 11 L Venous Blood Potassium 3.3 L 3.0 L Urine Color Urine Clarity Urine pH Ur Specific [place] Urine Protein Urine Glucose (UA) Urine Ketones Urine Blood Urine Nitrate Urine Bilirubin Urine Urobilinogen Ur Leukocyte Esterase Urine RBC (Auto) Urine WBC Clumps (Auto) Urine Microscopic WBC Ur Squamous Epith Cells Urine Yeast (Budding) 03/06/17 03/06/17 03/06/17 07:46 07:46 07:46 WBC 8.5 RBC 3.43 L Hgb 11.4 L Hct 33.8 L MCV 98.7 MCH 33.3 H MCHC 33.7 RDW 12.9 Plt Count 182 MPV 9.4 Neut % (Auto) 85.8 H Lymph % (Auto) 7.8 L [place] % (Auto) 6.1 Eos % (Auto) 0.1 Baso % (Auto) 0.2 Neut # 7.3 H Lymph # 0.7 L [place] # 0.5 Eos # 0.0 Baso # 0.0 Neutrophils % (Manual) Band Neutrophils % Lymphocytes % (Manual) Monocytes % (Manual) Toxic Granulation Platelet Estimate Anisocytosis (manual) Macrocytosis (manual) PT 12.1 INR 1.2 APTT 41.3 H pO2 VBG pH VBG pCO2 VBG HCO3 VBG Total CO2 VBG O2 Sat (Calc) VBG Base Excess VBG Potassium Glucose Lactate FiO2 Sodium 131 L Potassium 3.4 L Chloride 102 Carbon Dioxide 21 L Anion Gap 11 BUN 43 H Creatinine 2.0 H Est GFR ( Amer) 30 Est GFR (Non-Af Amer) 25 Random Glucose 96 Calcium 7.4 L Magnesium Total Bilirubin AST ALT Alkaline Phosphatase Total Protein Albumin Globulin Albumin/Globulin Ratio Lipase Venous Blood Potassium Urine Color Urine Clarity Urine pH Ur Specific [place] Urine Protein Urine Glucose (UA) Urine Ketones Urine Blood Urine Nitrate Urine Bilirubin Urine Urobilinogen Ur Leukocyte Esterase Urine RBC (Auto) Urine WBC Clumps (Auto) Urine Microscopic WBC Ur Squamous Epith Cells Urine Yeast (Budding) 03/07/17 03/07/17 03/07/17 06:00 06:00 07:00 WBC 5.5 RBC 3.25 L Hgb 10.7 L Hct 31.9 L MCV 98.1 MCH 32.9 H MCHC 33.5 RDW 13.3 Plt Count 162 MPV Neut % (Auto) Lymph % (Auto) [place] % (Auto) Eos % (Auto) Baso % (Auto) Neut # Lymph # [place] # Eos # Baso # Neutrophils % (Manual) Band Neutrophils % Lymphocytes % (Manual) Monocytes % (Manual) Toxic Granulation Platelet Estimate Anisocytosis (manual) Macrocytosis (manual) PT INR APTT pO2 VBG pH VBG pCO2 VBG HCO3 VBG Total CO2 VBG O2 Sat (Calc) VBG Base Excess VBG Potassium Glucose Lactate FiO2 Sodium 135 Potassium 3.4 L Chloride 107 Carbon Dioxide 20 L Anion Gap 11 BUN 39 H Creatinine 1.8 H Est GFR ( Amer) 34 Est GFR (Non-Af Amer) 28 Random Glucose 100 Calcium 7.7 L Magnesium 2.2 Total Bilirubin AST ALT Alkaline Phosphatase Total Protein Albumin Globulin Albumin/Globulin Ratio Lipase Venous Blood Potassium Urine Color Urine Clarity Urine pH Ur Specific [place] Urine Protein Urine Glucose (UA) Urine Ketones Urine Blood Urine Nitrate Urine Bilirubin Urine Urobilinogen Ur Leukocyte Esterase Urine RBC (Auto) Urine WBC Clumps (Auto) Urine Microscopic WBC Ur Squamous Epith Cells Urine Yeast (Budding) 03/07/17 03/08/17 03/08/17 19:00 05:30 12:10 WBC 5.9 RBC 3.27 L Hgb 10.7 L Hct 32.0 L MCV 97.9 MCH 32.7 H MCHC 33.4 RDW 13.2 Plt Count 155 MPV 9.4 Neut % (Auto) 77.9 H Lymph % (Auto) 11.7 L [place] % (Auto) 9.1 Eos % (Auto) 0.5 Baso % (Auto) 0.8 Neut # 4.6 Lymph # 0.7 L [place] # 0.5 Eos # 0.0 Baso # 0.0 Neutrophils % (Manual) Band Neutrophils % Lymphocytes % (Manual) Monocytes % (Manual) Toxic Granulation Platelet Estimate Anisocytosis (manual) Macrocytosis (manual) PT INR APTT pO2 VBG pH VBG pCO2 VBG HCO3 VBG Total CO2 VBG O2 Sat (Calc) VBG Base Excess VBG Potassium Glucose Lactate FiO2 Sodium Potassium Chloride Carbon Dioxide Anion Gap BUN Creatinine Est GFR ( Amer) Est GFR (Non-Af Amer) Random Glucose Calcium Magnesium 2.2 Total Bilirubin AST ALT Alkaline Phosphatase Total Protein Albumin Globulin Albumin/Globulin Ratio Lipase Venous Blood Potassium Urine Color Yellow Urine Clarity Slighty-cloudy Urine pH 5.0 Ur Specific [place] 1.013 Urine Protein 30 Urine Glucose (UA) Neg Urine Ketones Negative Urine Blood Moderate Urine Nitrate Negative Urine Bilirubin Negative Urine Urobilinogen 0.2-1.0 Ur Leukocyte Esterase Neg Urine RBC (Auto) 26 H Urine WBC Clumps (Auto) Urine Microscopic WBC 6 H Ur Squamous Epith Cells 1 Urine Yeast (Budding) 03/08/17 12:10 WBC RBC Hgb Hct MCV MCH MCHC RDW Plt Count MPV Neut % (Auto) Lymph % (Auto) [place] % (Auto) Eos % (Auto) Baso % (Auto) Neut # Lymph # [place] # Eos # Baso # Neutrophils % (Manual) Band Neutrophils % Lymphocytes % (Manual) Monocytes % (Manual) Toxic Granulation Platelet Estimate Anisocytosis (manual) Macrocytosis (manual) PT INR APTT pO2 VBG pH VBG pCO2 VBG HCO3 VBG Total CO2 VBG O2 Sat (Calc) VBG Base Excess VBG Potassium Glucose Lactate FiO2 Sodium 137 Potassium 3.6 Chloride 111 H Carbon Dioxide 17 L Anion Gap 13 BUN 28 H Creatinine 1.4 H Est GFR ( Amer) 45 Est GFR (Non-Af Amer) 37 Random Glucose 96 Calcium 8.0 L Magnesium Total Bilirubin AST ALT Alkaline Phosphatase Total Protein Albumin Globulin Albumin/Globulin Ratio Lipase Venous Blood Potassium Urine Color Urine Clarity Urine pH Ur Specific [place] Urine Protein Urine Glucose (UA) Urine Ketones Urine Blood Urine Nitrate Urine Bilirubin Urine Urobilinogen Ur Leukocyte Esterase Urine RBC (Auto) Urine WBC Clumps (Auto) Urine Microscopic WBC Ur Squamous Epith Cells Urine Yeast (Budding) Microbiology 03/07/17 14:30 Blood-Venous Blood Culture - Preliminary NO GROWTH AFTER 24 HOURS 03/07/17 14:57 Blood-Venous Blood Culture - Preliminary NO GROWTH AFTER 24 HOURS 03/05/17 21:00 Urine Urine Culture - Final Escherichia Coli 03/05/17 21:45 Blood Blood Culture - Final Escherichia Coli 03/05/17 21:45 Blood Gram Stain - Final 03/06/17 18:10 Blood-Venous Blood Culture - Preliminary NO GROWTH AFTER 24 HOURS 03/05/17 21:09 Blood Blood Culture - Final Gram Negative Judd 03/05/17 21:09 Blood Gram Stain - Final Assessment and Plan (1) Pyelonephritis Status: Acute (2) UTI (urinary tract infection) Status: Acute (3) Bacteremia due to Escherichia coli Status: Acute - Assessment and Plan (Free Text) Assessment: A/P- 66 year old female admitted with UTI and ? pyelonephritis. afebrile today normal wbc blood cx x 2 from 03/05/2017 reported today E.Coli pansensitive urine cx from 03/05/2017- e.coli pansensitive CT report noted with perinephric stranding as per report. UA- Pos repeat blood cx- neg x 3 e.coli [facility] E.coli bacteremia plan- check echo r/o any vegetations. day # of IV meropenm for e.coli bactermia, since the e.coli is pansensitive can de-escalate the antibiotic to ceftriaxone. had a lengthy conversation with both the patient and her that since she has e.coli bactermia it's imperative to treat with appropritae IV antibiotics for at least 14 days, pt. states she must go back to [place] next week and f/u with her doctor in [place] for the remainder of the IV abx there. advised pt. if she can to postpone her trip back few days till she can complete full course of the antibiotics. patient and her verbalize full understanding of al above.
[2017-03-08] MEDS: cefTRIAXone 2 GM in Sodium Chloride 0.9% 100 ML IVPB SCH (17:01)
[2017-03-09] MEDS: Sodium Chloride 0.9% 1,000 ML IV SCH ×3 (05:00→23:41)
[2017-03-09] MEDS: Fluticasone-Salmeterol 500-50mcg Diskus IH SCH ×2 (09:08→20:08)
[2017-03-09] MEDS: Enoxaparin 30 mg Syringe SC SCH (09:08)
[2017-03-09] MEDS: Pantoprazole 40 mg EC Tab PO SCH (09:09)
[2017-03-09] MEDS: cefTRIAXone 2 GM in Sodium Chloride 0.9% 100 ML IVPB SCH (10:00)
--- NOTE | 2017-03-09 12:18 | CP.PCM.PN ---
Subjective - Date & Time of Evaluation Date of Evaluation: 03/09/17 Time of Evaluation: 12:17 - Subjective Subjective: Pt seen and examined at bedside. No complaints, feeling mildly improved. Denies CP, Dyspnea, Calftenderness. HD stable NAD. Objective - Vital Signs/Intake and Output Vital Signs (last 24 hours): Temp Pulse Resp BP Pulse Ox 97.9 F 103 H 18 126/72 98 03/09/17 08:00 03/09/17 09:00 03/09/17 08:00 03/09/17 08:00 03/09/17 08:00 GEN: WDWN, alert, cooperative HEENT: NCAT, PERRL, EOMI NECK: supple, no JVD, no lymphadenopathy CARDIAC: +S1S2 RRR LUNG: CTAB No WRR ABD: SOFT NT ND BSX4 NO MASSES NO HSM EXT: +pedal pulses, equal strength NEURO: AAOx3 SKIN warm, dry PSYCH normal mood, normal affect Intake and Output: 03/09/17 03/09/17 06:59 18:59 Intake Total 1350 Output Total 1200 Balance 150 - Medications Medications: Current Medications Acetaminophen (Tylenol 325mg Tab) 650 mg PO Q4 PRN PRN Reason: Fever >100.4 F Last Admin: 03/06/17 17:14 Dose: 650 mg Acetaminophen (Tylenol 325mg Tab) 650 mg PO Q4 PRN PRN Reason: Other Last Admin: 03/07/17 19:54 Dose: 650 mg Diphenhydramine HCl (Benadryl) 25 mg PO HS PRN PRN Reason: Insomnia Last Admin: 03/08/17 20:55 Dose: 25 mg Enoxaparin Sodium (Lovenox) 30 mg SC DAILY GAUDENCIO PRN Reason: Protocol Last Admin: 03/09/17 09:08 Dose: 30 mg Sodium Chloride (Sodium Chloride 0.9%) 1,000 mls @ 125 mls/hr IV .Q8H GAUDENCIO Stop: 03/09/17 12:19 Last Admin: 03/09/17 05:00 Dose: 125 mls/hr Ceftriaxone Sodium 2 gm/ (Sodium Chloride) 100 mls @ 100 mls/hr IVPB DAILY GAUDENCIO Last Admin: 03/09/17 10:00 Dose: 100 mls/hr Levalbuterol HCl (Xopenex) 0.63 mg INH RQ8 PRN PRN Reason: Shortness of Breath Ondansetron HCl (Zofran Inj) 4 mg IVP Q4 PRN PRN Reason: Nausea/Vomiting Pantoprazole Sodium (Protonix Ec Tab) 40 mg PO DAILY GAUDENCIO Last Admin: 03/09/17 09:09 Dose: 40 mg Fluticasone/Salmeterol (Advair Diskus 500/50) 1 puff IH Q12 GAUDENCIO Last Admin: 03/09/17 09:08 Dose: 1 puff Tramadol HCl (Ultram) 50 mg PO Q4 PRN PRN Reason: Pain, severe (8-10) - Labs Labs: 03/08/17 12:10 03/08/17 12:10 PT 12.1 Seconds (9.8-13.1) 03/06/17 07:46 INR 1.2 (0.9-1.2) 03/06/17 07:46 APTT 41.3 Seconds (25.6-37.1) H 03/06/17 07:46 Assessment and Plan - Assessment and Plan (Free Text) Plan: 66 years old female visiting from [place], has hx of asthma, HTN and was diagnosed and treated 1 week ago with UTI. 3 days prior to this admission she began presenting right flank pain radiating to the right groin and the right thigh. This was associated with Urinary frequency, headache, nausea, vomiting, mild diarrhea and generalized weakness. Initial BP in ED was 164/89mmHg with a Heart rate of 73. This later changed to a heart rate of 120/min with fall in the blood pressure to 96/46mmHg. 03/08/17 pt afebrile, HD stable, mild tachy. Clinically improved mildly. Cont Zosyn. 03/09/17 pt afebrile and HD stable. Changed abx to ceftriaxone. Pyelonephritis Sepsis - Consult ID Dr Crouch - Rocephin 1gm IVPB daily changed to ZOSYN 03/07/17 +BLOOD CX pos for ECOLI, sensitive to Zosyn. CHANGE TO CEFTRIAXONE PER ID +URINE CX pos for ECOLI, sensitive to Zosyn. - IV Fluid NS -Pain management with Tylenol/Toradol -Per ID ECHO to rule out vegetations given bacteremia, and repeat blood cultures for neg x2. Acute Kidney Injury, likely pre-renal due to prior vomiting and diarrhea - IV Fluids 2 liters in ED and continue at 125mls/hr - Follow renal labs, mildly improving Hyponatremia and Hypokalemia because of poor intake, vomiting and diarrhea - IV fluid NS at 125cc - Follow electrolytes - Given Ensure for poor PO intake HTN - Hold antihypertensive Medications - follow Blood Pressures Diarrhea - Follow Stool for C Diff Toxins, and Culture and sensitivity. Asthma Hx - cont pt's Advair - PRN bronchodilators DVT prophylaxis with Lovenox Code Status: Full
[2017-03-09] MEDS ORDERED: Sodium Chloride 0.9% 1,000 ML IV SCH (12:45)
--- NOTE | 2017-03-09 14:04 | CARD ---
APPROVED REPORT EXAM: Two-dimensional and M-mode echocardiogram with Doppler and color Doppler. Other Information Quality : GoodRhythm : NSR INDICATION Infection: 2D DIMENSIONS IVSd0.94 (0.7-1.1cm)LVDd4.40 (3.9-5.9cm) LVOT Diameter1.76 (1.8-2.4cm)PWd0.92 (0.7-1.1cm) IVSs1.00 (0.8-1.2cm)LVDs3.74 (2.5-4.0cm) FS (%) 15.0 %PWs0.91 (0.8-1.2cm) M-Mode DIMENSIONS Left Atrium (MM)3.56 (2.5-4.0cm)IVSd0.65 (0.7-1.1cm) Aortic Root2.97 (2.2-3.7cm)LVDd5.09 (4.0-5.6cm) Aortic Cusp Exc.1.76 (1.5-2.0cm)PWd0.82 (0.7-1.1cm) IVSs1.09 cmFS (%) 29 % LVDs3.62 (2.0-3.8cm)PWs1.06 cm Mitral Valve E/A ratio0.0 TDI E/Lateral E'0.0E/Medial E'0.0 Pulmonary Valve PV Peak Sxcsivmf16.6cm/s LEFT VENTRICLE The left ventricle is normal size. There is normal left ventricular wall thickness. The left ventricular function is normal. The left ventricular ejection fraction is - 55%. There is normal LV segmental wall motion. Transmitral Doppler flow pattern is Grade I-abnormal relaxation pattern. No left ventricle thrombus noted on this study. There is no ventricular septal defect visualized. There is no left ventricular aneurysm. There is no mass noted in the left ventricle. RIGHT VENTRICLE The right ventricle is normal size. There is normal right ventricular wall thickness. The right ventricular systolic function is normal. ATRIA The left atrium size is normal. There is no thrombus suspected in the left atrium. The right atrium size is normal. The interatrial septum is intact with no evidence for an atrial septal defect. AORTIC VALVE The aortic valve is normal in structure and function. No aortic regurgitation is present. There is no aortic valvular stenosis. There is no aortic valvular vegetation. MITRAL VALVE The mitral valve is normal in structure and function. There is no evidence of mitral valve prolapse. There is no mitral valve stenosis. Mitral regurgitation is trace. TRICUSPID VALVE The tricuspid valve is normal in structure and function. There is trace tricuspid regurgitation. There is no tricuspid valve prolapse or vegetation. There is no tricuspid valve stenosis. PULMONIC VALVE The pulmonary valve is normal in structure and function. There is no pulmonic valvular regurgitation. GREAT VESSELS The aortic root is normal in size. The IVC is normal in size and collapses >50% with inspiration. PERICARDIAL EFFUSION The pericardium appears normal. There is no pleural effusion. <Conclusion> The left ventricle is normal in size and wall thickness. The left ventricular function is normal. The left ventricular ejection fraction is - 55%. The left atrium, right ventricle and right atrium are normal in size. The mitral, aortic and tricuspid valves are normal. No valvular vegetations were seen. There is trace mitral regurgitation and trace tricuspid regurgitation.
[2017-03-10 06:26] LABS: BASO % 0.4 % (0.0-2.0); EOS # 0.2 K/uL (0.0-0.7); EOS % 2.1 % (0.0-4.0); LYMPH # 0.9 K/uL (1.0-4.3); LYMPH % 12.5 % (20.0-40.0); MEAN CELL VOLUME 98.4 fl (81.0-99.0); MEAN CORPUSCULAR HEMOGLOBIN 32.4 pg (27.0-31.0); MEAN CORPUSCULAR HGB CONC 32.9 g/dL (33.0-37.0); MEAN PLATELET VOLUME 8.8 fl (7.2-11.7); MONO # 0.6 K/uL (0.0-0.8); MONO % 8.2 % (0.0-10.0); NEUT # 5.5 K/uL (1.8-7.0); NEUT % 76.8 % (50.0-75.0); RED CELL DISTRIBUTION WIDTH 13.5 % (11.5-14.5); WHITE BLOOD COUNT 7.2 K/uL (4.8-10.8)
[2017-03-10 06:35] LABS: ALKALINE PHOSPHATASE 97 U/L (38-126); ALT/SGPT 47 U/L (9-52); AST/SGOT 26 U/L (14-36); BILIRUBIN,TOTAL 0.2 mg/dl (0.2-1.3); BLOOD UREA NITROGEN 14 mg/dl (7-17); CALCIUM 7.7 mg/dL (8.4-10.2); CARBON DIOXIDE 17 mmol/L (22-30); CHLORIDE 115 mmol/L (98-107); GFR AFRICAN-AMERICAN > 60; GLUCOSE,RANDOM 86 mg/dL (65-105); POTASSIUM 3.4 MMOL/L (3.6-5.0); SODIUM 140 mmol/l (132-148); TOTAL PROTEIN 4.8 G/DL (6.3-8.2)
[2017-03-10] MEDS: Sodium Chloride 0.9% 1,000 ML IV SCH (09:45)
[2017-03-10] MEDS: cefTRIAXone 2 GM in Sodium Chloride 0.9% 100 ML IVPB SCH (09:47)
[2017-03-10] MEDS: Pantoprazole 40 mg EC Tab PO SCH (09:47)
[2017-03-10] MEDS: Fluticasone-Salmeterol 500-50mcg Diskus IH SCH ×2 (09:48→22:02)
[2017-03-10] MEDS: Enoxaparin 30 mg Syringe SC SCH (09:49)
--- NOTE | 2017-03-10 10:27 | CP.PCM.PN ---
Subjective - Date & Time of Evaluation Date of Evaluation: 03/10/17 Time of Evaluation: 10:24 - Subjective Subjective: FEELING IMPROVED AFEBRILE NO WBC PT TODAY DISCUSSED WTIH ID, LIKELY DISCHARGE WITH IV CEFTRIAXONE UNTIL THURSDAY AND CHANGE TO PO CIPRO HD STABLE NAD Objective - Vital Signs/Intake and Output Vital Signs (last 24 hours): Temp Pulse Resp BP Pulse Ox 97.5 F L 97 H 18 124/71 94 L 03/10/17 09:00 03/10/17 09:00 03/10/17 09:00 03/10/17 09:00 03/10/17 09:00 Exam: GEN: WDWN, alert, cooperative HEENT: NCAT, PERRL, EOMI NECK: supple, no JVD, no lymphadenopathy CARDIAC: +S1S2 RRR LUNG: CTAB No WRR ABD: SOFT NT ND BSX4 NO MASSES NO HSM EXT: +pedal pulses, equal strength NEURO: AAOx3 SKIN warm, dry PSYCH normal mood, normal affect Intake and Output: 03/10/17 03/10/17 06:59 18:59 Intake Total 1000 Output Total 850 Balance 150 - Medications Medications: Current Medications Acetaminophen (Tylenol 325mg Tab) 650 mg PO Q4 PRN PRN Reason: Fever >100.4 F Last Admin: 03/06/17 17:14 Dose: 650 mg Acetaminophen (Tylenol 325mg Tab) 650 mg PO Q4 PRN PRN Reason: Other Last Admin: 03/09/17 20:06 Dose: 650 mg Diphenhydramine HCl (Benadryl) 25 mg PO HS PRN PRN Reason: Insomnia Last Admin: 03/08/17 20:55 Dose: 25 mg Enoxaparin Sodium (Lovenox) 30 mg SC DAILY GAUDENCIO PRN Reason: Protocol Last Admin: 03/10/17 09:49 Dose: 30 mg Ceftriaxone Sodium 2 gm/ (Sodium Chloride) 100 mls @ 100 mls/hr IVPB DAILY GAUDENC[facility] Last Admin: 03/10/17 09:47 Dose: 100 mls/hr Sodium Chloride (Sodium Chloride 0.9%) 1,000 mls @ 125 mls/hr IV .Q8H GAUDENCIO Stop: 03/10/17 16:08 Last Admin: 03/10/17 09:45 Dose: 125 mls/hr Levalbuterol HCl (Xopenex) 0.63 mg INH RQ8 PRN PRN Reason: Shortness of Breath Ondansetron HCl (Zofran Inj) 4 mg IVP Q4 PRN PRN Reason: Nausea/Vomiting Pantoprazole Sodium (Protonix Ec Tab) 40 mg PO DAILY [facility] Last Admin: 03/10/17 09:47 Dose: 40 mg Fluticasone/Salmeterol (Advair Diskus 500/50) 1 puff IH Q12 GAUDENCIO Last Admin: 03/10/17 09:48 Dose: 1 puff Tramadol HCl (Ultram) 50 mg PO Q4 PRN PRN Reason: Pain, severe (8-10) - Labs Labs: 03/10/17 06:00 03/10/17 06:00 PT 12.1 Seconds (9.8-13.1) 03/06/17 07:46 INR 1.2 (0.9-1.2) 03/06/17 07:46 APTT 41.3 Seconds (25.6-37.1) H 03/06/17 07:46 Assessment and Plan - Assessment and Plan (Free Text) Plan: 66 years old female visiting from [place], has hx of asthma, HTN and was diagnosed and treated 1 week ago with UTI. 3 days prior to this admission she began presenting right flank pain radiating to the right groin and the right thigh. This was associated with Urinary frequency, headache, nausea, vomiting, mild diarrhea and generalized weakness. Initial BP in ED was 164/89mmHg with a Heart rate of 73. This later changed to a heart rate of 120/min with fall in the blood pressure to 96/46mmHg. 03/08/17 pt afebrile, HD stable, mild tachy. Clinically improved mildly. Cont Zosyn. 03/09/17 pt afebrile and HD stable. Changed abx to ceftriaxone. 03/10/17 afebrile, HD stable. feeling improved. Renal fx also improved. Discussed with ID, pt can continue CEFTRIAXONE starting tomorrow as outpatient and will change to PO Cipro for when she goes home to [place]. Pyelonephritis Sepsis - Consult ID Dr Crouch - Rocephin 1gm IVPB daily changed to ZOSYN 03/07/17 03/05/17 +BLOOD CX x2 pos for ECOLI, sensitive to Zosyn. CHANGE TO CEFTRIAXONE PER ID Sensitive to Cipro 0.12, Ceftriaxone 1 03/05/17 +URINE CX pos for ECOLI, sensitive to Zosyn. 03/06/17 BLOOD CULTURE NO GROWTH 48 H 03/07/17 BLOOD CULTURE NO GROWTH 48 H 03/07/17 BLOOD CULTURE NO GROWTH 48 H - IV Fluid NS -Pain management with Tylenol/Toradol -Per ID ECHO to rule out vegetations given bacteremia, and repeat blood cultures for neg x2. Acute Kidney Injury, likely pre-renal due to prior vomiting and diarrhea - IV Fluids 2 liters in ED and continue at 125mls/hr - Follow renal labs, IMPROVED Hyponatremia and Hypokalemia because of poor intake, vomiting and diarrhea - IV fluid NS at 125cc - Follow electrolytes - Given Ensure for poor PO intake HTN - Hold antihypertensive Medications - follow Blood Pressures Diarrhea - Follow Stool for C Diff Toxins, and Culture and sensitivity. Asthma Hx - cont pt's Advair - PRN bronchodilators DVT prophylaxis with Lovenox Code Status: Full
[2017-03-10] MEDS ORDERED: Potassium Chloride 20 mEq ER Tab PO ONE (13:48)
[2017-03-11 08:03] LABS: BASO % 0.5 % (0.0-2.0); EOS # 0.2 K/uL (0.0-0.7); EOS % 2.7 % (0.0-4.0); HEMATOCRIT 30.1 % (34.0-47.0); LYMPH # 1.3 K/uL (1.0-4.3); LYMPH % 16.8 % (20.0-40.0); MEAN CELL VOLUME 97.3 fl (81.0-99.0); MEAN CORPUSCULAR HEMOGLOBIN 32.9 pg (27.0-31.0); MEAN CORPUSCULAR HGB CONC 33.8 g/dL (33.0-37.0); MEAN PLATELET VOLUME 8.7 fl (7.2-11.7); MONO # 0.7 K/uL (0.0-0.8); MONO % 8.7 % (0.0-10.0); NEUT # 5.6 K/uL (1.8-7.0); NEUT % 71.3 % (50.0-75.0); RED CELL DISTRIBUTION WIDTH 13.6 % (11.5-14.5); WHITE BLOOD COUNT 7.8 K/uL (4.8-10.8)
[2017-03-11 08:32] LABS: BLOOD UREA NITROGEN 11 mg/dl (7-17); CARBON DIOXIDE 17 mmol/L (22-30); CHLORIDE 115 mmol/L (98-107); GFR AFRICAN-AMERICAN > 60; GLUCOSE,RANDOM 81 mg/dL (65-105); POTASSIUM 3.3 MMOL/L (3.6-5.0); SODIUM 140 mmol/l (132-148)
[2017-03-11 08:44] VITALS: BP 156/76; PULSE 73; RESP 20; TEMP 98.1; O2SAT 92
[2017-03-11] MEDS: Fluticasone-Salmeterol 500-50mcg Diskus IH SCH (09:14)
[2017-03-11] MEDS: Enoxaparin 30 mg Syringe SC SCH (09:14)
[2017-03-11] MEDS: cefTRIAXone 2 GM in Sodium Chloride 0.9% 100 ML IVPB SCH (09:15)
[2017-03-11] MEDS: Pantoprazole 40 mg EC Tab PO SCH (09:15)
[2017-03-11] MEDS ORDERED: Potassium Chloride 20 mEq/15 ml LIQ UD PO SCH (10:00)
--- NOTE | 2017-03-11 10:44 | CP.PCM.PN ---
Subjective - Date & Time of Evaluation Date of Evaluation: 03/11/17 Time of Evaluation: 10:44 - Subjective Subjective: ID Note- Pt. seen and examined. she states she feels much better. denies any fever or chills. denies any abd or back pian, denies any dysurea. Pt. being d/c home today camille will receive Iv abx for 3 more days until she gets back to her home in [place] next week to resume Iv abx with her PCP there. Objective - Vital Signs/Intake and Output Vital Signs (last 24 hours): Temp Pulse Resp BP Pulse Ox 98.1 F 73 20 156/76 H 92 L 03/11/17 08:44 03/11/17 08:44 03/11/17 08:44 03/11/17 08:44 03/11/17 08:44 Intake and Output: 03/11/17 03/11/17 06:59 18:59 Intake Total 240 Balance 240 - Medications Medications: Current Medications Acetaminophen (Tylenol 325mg Tab) 650 mg PO Q4 PRN PRN Reason: Fever >100.4 F Last Admin: 03/06/17 17:14 Dose: 650 mg Acetaminophen (Tylenol 325mg Tab) 650 mg PO Q4 PRN PRN Reason: Other Last Admin: 03/09/17 20:06 Dose: 650 mg Diphenhydramine HCl (Benadryl) 25 mg PO HS PRN PRN Reason: Insomnia Last Admin: 03/08/17 20:55 Dose: 25 mg Enoxaparin Sodium (Lovenox) 30 mg SC DAILY GAUDENCIO PRN Reason: Protocol Last Admin: 03/11/17 09:14 Dose: 30 mg Ceftriaxone Sodium 2 gm/ (Sodium Chloride) 100 mls @ 100 mls/hr IVPB DAILY [facility] Last Admin: 03/11/17 09:15 Dose: 100 mls/hr Levalbuterol HCl (Xopenex) 0.63 mg INH RQ8 PRN PRN Reason: Shortness of Breath Ondansetron HCl (Zofran Inj) 4 mg IVP Q4 PRN PRN Reason: Nausea/Vomiting Pantoprazole Sodium (Protonix Ec Tab) 40 mg PO DAILY [facility] Last Admin: 03/11/17 09:15 Dose: 40 mg Potassium Chloride (Potassium Chloride Oral Soln) 20 meq PO DAILY [facility] Fluticasone/Salmeterol (Advair Diskus 500/50) 1 puff IH Q12 GAUDENCIO Last Admin: 03/11/17 09:14 Dose: 1 puff Tramadol HCl (Ultram) 50 mg PO Q4 PRN PRN Reason: Pain, severe (8-10) - Labs Labs: 03/11/17 06:25 03/11/17 06:25 PT 12.1 Seconds (9.8-13.1) 03/06/17 07:46 INR 1.2 (0.9-1.2) 03/06/17 07:46 APTT 41.3 Seconds (25.6-37.1) H 03/06/17 07:46 - Additional Findings Additional findings: - Constitutional Appears: No Acute Distress - Head Exam Head Exam: ATRAUMATIC - Eye Exam Eye Exam: EOMI, PERRL - ENT Exam ENT Exam: Normal Oropharynx - Neck Exam Neck Exam: Full ROM - Respiratory Exam Respiratory Exam: Clear to Ausculation Bilateral, NORMAL BREATHING PATTERN - Cardiovascular Exam Cardiovascular Exam: RRR, +S1, +S2 - GI/Abdominal Exam GI & Abdominal Exam: Soft, Normal Bowel Sounds Additional comments: NT, ND - Extremities Exam Extremities Exam: Normal Inspection - Neurological Exam Neurological Exam: Alert, Awake, Oriented x 3 Laboratory Results - last 72 hr 03/10/17 03/10/17 03/11/17 06:00 06:00 06:25 WBC 7.2 7.8 RBC 3.05 L 3.09 L Hgb 9.9 L 10.2 L Hct 30.0 L 30.1 L MCV 98.4 97.3 MCH 32.4 H 32.9 H MCHC 32.9 L 33.8 RDW 13.5 13.6 Plt Count 224 345 D MPV 8.8 8.7 Neut % (Auto) 76.8 H 71.3 Lymph % (Auto) 12.5 L 16.8 L [place] % (Auto) 8.2 8.7 Eos % (Auto) 2.1 2.7 Baso % (Auto) 0.4 0.5 Neut # 5.5 5.6 Lymph # 0.9 L 1.3 Grainger # 0.6 0.7 Eos # 0.2 0.2 Baso # 0.0 0.0 Sodium 140 Potassium 3.4 L Chloride 115 H Carbon Dioxide 17 L Anion Gap 11 BUN 14 Creatinine 1.0 Est GFR ( Amer) > 60 Est GFR (Non-Af Amer) 55 Random Glucose 86 Calcium 7.7 L Total Bilirubin 0.2 AST 26 ALT 47 Alkaline Phosphatase 97 Total Protein 4.8 L Albumin 2.3 L D Globulin 2.4 Albumin/Globulin Ratio 1.0 03/11/17 06:25 WBC RBC Hgb Hct MCV MCH MCHC RDW Plt Count MPV Neut % (Auto) Lymph % (Auto) [place] % (Auto) Eos % (Auto) Baso % (Auto) Neut # Lymph # Grainger # Eos # Baso # Sodium 140 Potassium 3.3 L Chloride 115 H Carbon Dioxide 17 L Anion Gap 11 BUN 11 Creatinine 0.9 Est GFR ( Amer) > 60 Est GFR (Non-Af Amer) > 60 Random Glucose 81 Calcium 8.0 L Total Bilirubin AST ALT Alkaline Phosphatase Total Protein Albumin Globulin Albumin/Globulin Ratio Microbiology 03/07/17 14:30 Blood-Venous Blood Culture - Final NO GROWTH AFTER 5 DAYS 03/07/17 14:30 Blood-Venous Gram Stain - Final TEST NOT PERFORMED 03/07/17 14:57 Blood-Venous Blood Culture - Final NO GROWTH AFTER 5 DAYS 03/07/17 14:57 Blood-Venous Gram Stain - Final TEST NOT PERFORMED 03/06/17 18:10 Blood-Venous Blood Culture - Final NO GROWTH AFTER 5 DAYS 03/06/17 18:10 Blood-Venous Gram Stain - Final TEST NOT PERFORMED 03/08/17 09:00 Stool Stool Culture - Final NO SALMONELLA, SHIGELLA OR CAMPYLOBACTER ISOLATED. 03/05/17 21:00 Urine Urine Culture - Final Escherichia Coli 03/05/17 21:45 Blood Blood Culture - Final Escherichia Coli 03/05/17 21:45 Blood Gram Stain - Final 03/05/17 21:09 Blood Blood Culture - Final Gram Negative Judd 03/05/17 21:09 Blood Gram Stain - Final Assessment and Plan (1) Pyelonephritis Status: Acute (2) UTI (urinary tract infection) Status: Acute (3) Bacteremia due to Escherichia coli Status: Acute - Assessment and Plan (Free Text) Assessment: A/P- 66 year old female admitted with UTI and ? pyelonephritis. afebrile normal wbc blood cx x 2 from 03/05/2017 reported E.Coli pansensitive urine cx from 03/05/2017- e.coli pansensitive CT report noted with perinephric stranding as per report. UA- Pos repeat blood cx- neg x 3 TTE- no vegetations per report e.coli [facility] E.coli bacteremia plan- pt. had received 3 days of Iv meropenem and then was switched to Iv ceftriaxone since the e.coli in both urine and blood cx was garvey-sensitive ( sensitive to cipro and cephalosporins including ceftriaxone). day #4 of ceftriaxone. since pt. is adamant about returning to [place] on thursday, advised to come to hospital once wong till then for once a day Iv ceftriaxone injection and then to be on oral cipro untill she seen her PCP in [place] and then resume Iv ceftriaxone in [place] for another 10 days to complete total days of Iv abx therapy required for her bacteremia. patient and her verbalize full understanding of al above and agree with above garvey of care. all above was also d/w the hospitalist taking care of the patient.
--- NOTE | 2017-03-11 12:01 | CP.PCM.DIS ---
Provider - Provider Date of Admission: 03/06/17 00:37 Attending physician: Mk Calix Consults: Dr Crouch Time Spent in preparation of Discharge (in minutes): 20 Diagnosis - Discharge Diagnosis (1) Pyelonephritis Status: Acute Comment: urine culture + for E coli sensistive to Rocephin and Cipro. continue IV Rocephin for another 3 days and 7 days of cipro following that (2) HTN (hypertension) Status: Acute Comment: BP slightly controlled without medications. low salt diet (3) Asthma Status: Acute Comment: asymptomatic. continue Advair and bronchodilators as needed Hospital Course - Lab Results Lab Results: Micro Results 03/06/17 18:10 Blood-Venous Blood Culture - Preliminary NO GROWTH AFTER 4 DAYS 03/07/17 14:30 Blood-Venous Blood Culture - Preliminary NO GROWTH AFTER 3 DAYS 03/07/17 14:57 Blood-Venous Blood Culture - Preliminary NO GROWTH AFTER 3 DAYS 03/08/17 09:00 Stool Stool Culture - Final NO SALMONELLA, SHIGELLA OR CAMPYLOBACTER ISOLATED. Most Recent Lab Values WBC 7.8 K/uL (4.8-10.8) 03/11/17 06:25 RBC 3.09 Mil/uL (3.80-5.20) L 03/11/17 06:25 Hgb 10.2 g/dL (12.0-16.0) L 03/11/17 06:25 Hct 30.1 % (34.0-47.0) L 03/11/17 06:25 MCV 97.3 fl (81.0-99.0) 03/11/17 06:25 MCH 32.9 pg (27.0-31.0) H 03/11/17 06:25 MCHC 33.8 g/dL (33.0-37.0) 03/11/17 06:25 RDW 13.6 % (11.5-14.5) 03/11/17 06:25 Plt Count 345 K/uL (130-400) D 03/11/17 06:25 MPV 8.7 fl (7.2-11.7) 03/11/17 06:25 Neut % (Auto) 71.3 % (50.0-75.0) 03/11/17 06:25 Lymph % (Auto) 16.8 % (20.0-40.0) L 03/11/17 06:25 [place] % (Auto) 8.7 % (0.0-10.0) 03/11/17 06:25 Eos % (Auto) 2.7 % (0.0-4.0) 03/11/17 06:25 Baso % (Auto) 0.5 % (0.0-2.0) 03/11/17 06:25 Neut # 5.6 K/uL (1.8-7.0) 03/11/17 06:25 Lymph # 1.3 K/uL (1.0-4.3) 03/11/17 06:25 [place] # 0.7 K/uL (0.0-0.8) 03/11/17 06:25 Eos # 0.2 K/uL (0.0-0.7) 03/11/17 06:25 Baso # 0.0 K/uL (0.0-0.2) 03/11/17 06:25 Neutrophils % (Manual) 81 % (42-75) H 03/05/17 21:09 Band Neutrophils % 4 % (0-2) H 03/05/17 21:09 Lymphocytes % (Manual) 9 % (20-50) L 03/05/17 21:09 Monocytes % (Manual) 6 % (0-10) 03/05/17 21:09 Toxic Granulation Present 03/05/17 21:09 Platelet Estimate Normal (NORMAL) 03/05/17 21:09 Anisocytosis (manual) Slight 03/05/17 21:09 Macrocytosis (manual) Slight 03/05/17 21:09 PT 12.1 Seconds (9.8-13.1) 03/06/17 07:46 INR 1.2 (0.9-1.2) 03/06/17 07:46 APTT 41.3 Seconds (25.6-37.1) H 03/06/17 07:46 pO2 41 mm/Hg (30-55) 03/06/17 01:53 VBG pH 7.43 (7.32-7.43) 03/06/17 01:53 VBG pCO2 35 mmHg (40-60) L 03/06/17 01:53 VBG HCO3 23.9 mmol/L 03/06/17 01:53 VBG Total CO2 24.3 mmol/L (22-28) 03/06/17 01:53 VBG O2 Sat (Calc) 83.5 % (40-65) H 03/06/17 01:53 VBG Base Excess -0.6 mmol/L (0.0-2.0) L 03/06/17 01:53 VBG Potassium 3.0 mmol/L (3.6-5.2) L 03/06/17 01:53 Sodium 129.0 mmol/L (132-148) L 03/06/17 01:53 Chloride 97.0 mmol/L (98-107) L 03/06/17 01:53 Glucose 118 mg/dL (65-105) H 03/06/17 01:53 Lactate 1.0 mmol/L (0.7-2.1) 03/06/17 01:53 FiO2 21.0 % 03/06/17 01:53 Sodium 140 mmol/l (132-148) 03/11/17 06:25 Potassium 3.3 MMOL/L (3.6-5.0) L 03/11/17 06:25 Chloride 115 mmol/L (98-107) H 03/11/17 06:25 Carbon Dioxide 17 mmol/L (22-30) L 03/11/17 06:25 Anion Gap 11 (10-20) 03/11/17 06:25 BUN 11 mg/dl (7-17) 03/11/17 06:25 Creatinine 0.9 mg/dL (0.7-1.2) 03/11/17 06:25 Est GFR ( Amer) > 60 03/11/17 06:25 Est GFR (Non-Af Amer) > 60 03/11/17 06:25 Random Glucose 81 mg/dL (65-105) 03/11/17 06:25 Calcium 8.0 mg/dL (8.4-10.2) L 03/11/17 06:25 Magnesium 2.2 MG/DL (1.6-2.3) 03/08/17 05:30 Total Bilirubin 0.2 mg/dl (0.2-1.3) 03/10/17 06:00 AST 26 U/L (14-36) 03/10/17 06:00 ALT 47 U/L (9-52) 03/10/17 06:00 Alkaline Phosphatase 97 U/L (38-126) 03/10/17 06:00 Total Protein 4.8 G/DL (6.3-8.2) L 03/10/17 06:00 Albumin 2.3 g/dL (3.5-5.0) L D 03/10/17 06:00 Globulin 2.4 gm/dL (2.2-3.9) 03/10/17 06:00 Albumin/Globulin Ratio 1.0 (1.0-2.1) 03/10/17 06:00 Lipase 11 U/L (23-300) L 03/05/17 23:42 Venous Blood Potassium 3.0 mmol/L (3.6-5.2) L 03/06/17 01:53 Urine Color Yellow (YELLOW) 03/07/17 19:00 Urine Clarity Slighty-cloudy (Clear) 03/07/17 19:00 Urine pH 5.0 (5.0-8.0) 03/07/17 19:00 Ur Specific Gracey 1.013 (1.003-1.030) 03/07/17 19:00 Urine Protein 30 mg/dL (NEGATIVE) 03/07/17 19:00 Urine Glucose (UA) Neg mg/dL (Normal) 03/07/17 19:00 Urine Ketones Negative mg/dL (NEGATIVE) 03/07/17 19:00 Urine Blood Moderate (NEGATIVE) 03/07/17 19:00 Urine Nitrate Negative (NEGATIVE) 03/07/17 19:00 Urine Bilirubin Negative (NEGATIVE) 03/07/17 19:00 Urine Urobilinogen 0.2-1.0 mg/dL (0.2-1.0) 03/07/17 19:00 Ur Leukocyte Esterase Neg [place]/uL (Negative) 03/07/17 19:00 Urine RBC (Auto) 26 /hpf (0-3) H 03/07/17 19:00 Urine WBC Clumps (Auto) Few /hpf (NONE) H 03/05/17 21:00 Urine Microscopic WBC 6 /hpf (0-5) H 03/07/17 19:00 Ur Squamous Epith Cells 1 /hpf (0-5) 03/07/17 19:00 Urine Yeast (Budding) Few /hpf (NEGATIVE) H 03/05/17 21:00 - Hospital Course Hospital Course: 66 yo female with history of Asthma and HTN recently diagnosed and treated with UTI came in because of right flank pain radiating to the right groin and right thigh. She received IV Rocephin and did well. Pt is discharged in stable condition and would continue IV Rocephin for another 3 days then later switched to oral Cipro 500mg PO BID for another 7 days. Discharge Exam - Head Exam Head Exam: ATRAUMATIC - Eye Exam Eye Exam: Normal appearance - ENT Exam ENT Exam: Mucous Membranes Moist - Respiratory Exam Respiratory Exam: NORMAL BREATHING PATTERN. absent: Wheezes, Respiratory Distress - Cardiovascular Exam Cardiovascular Exam: REGULAR RHYTHM, +S1, +S2 - GI/Abdominal Exam GI & Abdominal Exam: Soft. absent: Tenderness - Rectal Exam Rectal Exam: Deferred - Back Exam Back exam: NORMAL INSPECTION - Neurological Exam Neurological exam: Alert, Oriented x3 - Psychiatric Exam Psychiatric exam: Normal Affect - Skin Skin Exam: Dry, Intact Discharge Plan - Discharge Medications Prescriptions: cefTRIAXone [Rocephin] 2 gm IV DAILY #3 vial Ciprofloxacin [Cipro] 500 mg PO BID #14 tab - Follow Up Plan Condition: FAIR Disposition: HOME/ ROUTINE Instructions: Urinary Tract Infection in Women (DC), Acute Pyelonephritis (DC) Additional Instructions: Please report to same day infusion and thursday for antibiotic infusion on Thursday go to emergency room for last antibiotic infusion begin oral antibiotic (cipro)on thursday.
== END 2017-03-11 13:03 | disposition home or self-care (01) | DRG 690 ==
LOC: H.ER 19:43 → UNDOADMIN 03-06 00:37 → H.ERHOLD 03-06 00:37 → H.TEL 03-06 02:29 → H.MEDSURG1 03-10 18:17
PROVIDERS: ADMIT Internal Medicine; ATTEND Internal Medicine
DX: N10 Acute pyelonephritis (principal); N17.9 Acute kidney failure, unspecified; E87.1 Hypo-osmolality and hyponatremia; J98.11 Atelectasis; B96.20 Unspecified Escherichia coli [E. coli] as the cause of diseases classified elsewhere; N39.0 Urinary tract infection, site not specified; E87.6 Hypokalemia; I10 Essential (primary) hypertension; J45.909 Unspecified asthma, uncomplicated; K44.9 Diaphragmatic hernia without obstruction or gangrene; Z87.440 Personal history of urinary (tract) infections

== ENCOUNTER 2017-03-14 18:43 | Emergency (ER) | payer OTHER ==
[2017-03-14 18:43] VITALS: BMI 23.0
[2017-03-14 20:11] VITALS: RESP 18; O2SAT 97
--- NOTE | 2017-03-14 20:14 | ED PDOC ---
HPI: General Adult Time Seen by Provider: 03/14/17 19:22 Chief Complaint (Nursing): Medical Clearance Chief Complaint (Provider): Medical clearance for insurance History Per: Patient History/Exam Limitations: no limitations Onset/Duration Of Symptoms: Other Have you had recent travel within the past 21 days to any of the following countries: [place], [place], [place] or [place]?: Yes Other Location:: Current Symptoms Are (Timing): Other Severity: None Pain Scale Rating Of: 0 Recently: Hospitalized Additional History Per: Patient Additional Complaint(s): 66 y/o female with history HTN and Asthma was recently admitted to [facility] inpatient, discharged 3 days ago, presenting today for medical clearance to fly back to the [place] because her insurance company does not think the paper work they initially sent them made her medically stable to fly due to her SpO2 being 93. Pt does not have any medical complaints, states she feels like she is back to her baseline, denies any fever, chills, nausea, vomiting, back pain. Completed IV antibiotics and is currently starting oral. No other complaints Past Medical History Vital Signs: Last Vital Signs Temp 98.0 F 03/14/17 20:46 Pulse 90 03/14/17 20:46 Resp 18 03/14/17 20:46 BP 138/74 03/14/17 20:46 Pulse Ox 97 03/14/17 20:57 - Medical History PMH: Asthma, HTN Denies: Chronic Kidney Disease - Family History Family History: States: No Known Family Hx - Home Medications Home Medications: Ambulatory Orders Medication Instructions Recorded Fluticasone/Salmeterol 500/50 1 puff IH Q12 puff 03/11/17 [Advair Diskus 500/50] cefTRIAXone [Rocephin] 2 gm IV DAILY #3 vial 03/11/17 - Allergies Allergies/Adverse Reactions: Allergies Allergy/AdvReac Type Severity Reaction Status Date / Time No Known Allergies Allergy Verified 03/05/17 19:46 Review of Systems ROS Statement: Except As Marked, All Systems Reviewed And Found Negative Physical Exam - Physical Exam Appears: Positive for: Well, No Acute Distress Head Exam: Positive for: NORMOCEPHALIC Skin: Positive for: Normal Color, Dry Eye Exam: Positive for: Normal appearance, EOMI, PERRL Neck: Positive for: Normal, Painless ROM Cardiovascular/Chest: Positive for: Regular Rate, Rhythm. Negative for: Murmur Respiratory: Positive for: Normal Breath Sounds. Negative for: Crackles, Rales , Wheezing Gastrointestinal/Abdominal: Positive for: Normal Exam, Bowel Sounds, Soft. Negative for: Tenderness, Organomegaly, Mass Back: Positive for: Normal Inspection. 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 Pt is medically stable to fly on air plane Disposition - Clinical Impression Clinical Impression: General medical exam, Encounter for medical clearance for patient hold - Patient ED Disposition Is Patient to be Admitted: No - Disposition Disposition: Routine/Home Disposition Time: 20:45 Condition: STABLE Additional Instructions: Pt is medically stable to travel via Airplane Instructions: Normal Exam (ED) Forms: [employer] ([place])
[2017-03-14 20:18] LABS: HEMATOCRIT 35.1 % (34.0-47.0); MEAN CELL VOLUME 96.8 fl (81.0-99.0); MEAN CORPUSCULAR HEMOGLOBIN 32.7 pg (27.0-31.0); MEAN CORPUSCULAR HGB CONC 33.7 g/dL (33.0-37.0); RED CELL DISTRIBUTION WIDTH 13.6 % (11.5-14.5); WHITE BLOOD COUNT 10.1 K/uL (4.8-10.8)
[2017-03-14 20:46] VITALS: BP 138/74; PULSE 90; TEMP 98
== END 2017-03-14 21:01 | disposition home or self-care (01) ==
LOC: H.ER 18:43
DX: I10 Essential (primary) hypertension (principal); J45.909 Unspecified asthma, uncomplicated; Z00.00 Encounter for general adult medical examination without abnormal findings